=== PATIENT | male | born 1960 | race Caucasian/White ===

== ENCOUNTER 2017-06-24 10:32 | Inpatient (IN) | payer OTHER ==
[~2017-06-24] VITALS: Ht 180.3 cm; Wt 142.2 kg
[~2017-06-24 10:32] MED LIST: AMLO-114 PO; APR25 PO; ASPI81TA28 PO; CARV25TA PO; CLON0.3T PO; DOXA1TAB PO; FURO40TA3 PO; GLIM2TAB PO; KCLP20 PO; LPT10 PO
[2017-06-24 15:46] VITALS: BP 183/102; PULSE 66; TEMP 36.5; O2SAT 100; BMI 44.3
[2017-06-24] MEDS ORDERED: DEXTROSE 50% 50 ML SYR IV PRN (16:00)
[2017-06-24] MEDS ORDERED: GLUCAGON FOR INJ 1 MG VIAL SQ PRN (16:00)
[2017-06-24] MEDS ORDERED: GLUCOSE 10 TABS/TUBE PO PRN (16:00)
[2017-06-24] MEDS ORDERED: ACETAMINOPHEN 325 MG TAB PO PRN (16:00)
[2017-06-24] MEDS ORDERED: GLUCOSE 40% GEL 15 GM TUBE PO PRN (16:00)
[2017-06-24] MEDS ORDERED: CYAN100020 PO (16:02)
[2017-06-24] MEDS ORDERED: ISOS60TA25 PO (16:02)
[2017-06-24] MEDS ORDERED: CNT PO (16:02)
[2017-06-24] MEDS ORDERED: TRIATAB3 PO (16:02)
[2017-06-24] MEDS ORDERED: CHOL20007 PO (16:02)
[2017-06-24] MEDS ORDERED: GLIM1TAB2 PO (16:02)
[2017-06-24] MEDS ORDERED: CLONIDINE HCL 0.1 MG TAB PO ONE (16:15)
[2017-06-24] MEDS ORDERED: [UNRECOGNIZED DRUG - REMARK] PO (16:24)
[2017-06-24] MEDS ORDERED: [UNRECOGNIZED DRUG - OTHER] PEG (16:24)
[2017-06-24] MEDS ORDERED: INFLUENZA VIRUS QUAD VACCINE 0.5 ML SYR IM. ONE (16:30)
[2017-06-24] MEDS ORDERED: INFLUENZA ADMINISTRATION CHARGE ONE (16:30)
--- NOTE | 2017-06-24 16:43 | History and Physical ---
History & Physical Date & Time of Service: Jun 24, 2017 at 16:30 Chief Complaint: Uremia Primary Care Physician: Serjio Glass D.O. History of Present Illness Source: patient, clinic records, hospital records This is a 57 year old male with a PMH of CKD stage V not on dialysis, labile hypertension, DM2, hyperlipidemia - sent from nephrology office to get a tunneled catheter for dialysis. Patient states he does not have many symptoms; denies chest pain, shortness of breath, denies nausea/vomiting/diarrhea. Still producing urine. Denies any urinary symptoms. No other issues to note today. Past Medical/Surgical History Medical Problems: (1) Chronic diastolic CHF (congestive heart failure) Status: Chronic (2) CKD (chronic kidney disease), stage IV Status: Chronic (3) Diabetes mellitus, type II Status: Chronic (4) HLD (hyperlipidemia) Status: Chronic (5) Hypertension Status: Chronic (6) Sleep apnea Permanent Comment: CPAP Status: Chronic Surgical Problems: (1) Status post carpal tunnel release Status: Chronic Family History Amyloidosis FATHER Diabetes mellitus MOTHER FHx: heart disease Hypertension MOTHER Stroke MOTHER Social History Smoking Status: Former Smoker Drug Use: none Marital Status: Housing status: lives alone Occupational Status: employed Allergies Coded Allergies: No Known Allergies (Unverified , 10/12/14) Home Medications Scheduled Amlodipine (Norvasc), 10 MG PO DAILY Aspirin (Aspirin Ec), 81 MG PO DAILY Atorvastatin (Lipitor), 10 MG PO QAM Carvedilol (Coreg), 25 MG PO BID Cholecalciferol (Vitamin D3), 1 TAB PO DAILY Clonidine Hcl (Catapres), 0.3 MG PO DAILY Cyanocobalamin (Vitamin B12), 1,000 MCG PO DAILY Doxazosin Mesylate (Cardura), 1 MG PO DAILY Glimepiride (Glimepiride), 1 TAB PO BID Hydralazine Hcl (Apresoline), 25 MG PO TID Isosorbide Mononitrate Ext Rel (Imdur Ext Rel), 60 MG PO QAM Multivitamins/Minerals (Certavite/Antioxidants), 1 TAB PO DAILY Potassium Chloride (Klor-Con), 20 MG PO BID Triamterene/Hctz (Triamterene/Hctz 37.5-25MG), 1 TAB PO HS [kidney stuff], 1 CAP PO DAILY [peony immune], 1 CAP PEG DAILY Review of Systems Constitutional: + weakness, + fatigue, No fever, No chills, No sweats Respiratory: No cough, No sputum, No wheezing, No shortness of breath, No dyspnea on exertion, No dyspnea at rest, No hemoptysis Cardiovascular: + edema, No chest pain, No orthopnea, No palpitations Abdomen: No pain, No nausea, No vomiting, No diarrhea, No constipation, No GI bleeding Musculoskeletal: + joint pain (chronic back pain), + swelling (b/l LE swelling) , No muscle pain Genitourinary - Male: No hematuria, No dysuria, No urinary frequency, No urinary urgency, No urinary hesitancy, No urinary retention Neurologic: + weakness, No numbness/tingling, No vertigo, No balance problems Psychiatric: No depression symptoms, No anxiety, No insomnia Endocrine: + fatigue, No excessive thirst, No excessive urination Hematologic / Lymphatic: No abnormal bleeding/bruising Integumentary: No rash Allergic / Immunologic: No environmental allergies, No seasonal allergies Physical Exam Vital Signs Date Time Temp Pulse Resp B/P (MAP) Pulse Ox O2 Delivery O2 Flow Rate FiO2 06/24/17 15:46 36.5 66 19 183/102 General Appearance: WD/WN, no apparent distress, + obese Head: normocephalic, atraumatic Eyes: normal inspection ENT: hearing grossly normal Respiratory/Chest: chest non-tender, lungs clear, normal breath sounds, no respiratory distress, no accessory muscle use Cardiovascular: regular rate, rhythm, no murmur, normal peripheral pulses Abdomen/GI: normal bowel sounds, non tender, soft, + distended Back: normal inspection, no CVA tenderness, no muscle spasm, normal range of motion Extremities/Musculoskelatal: normal inspection, no calf tenderness, normal capillary refill, normal range of motion, + pertinent finding (+trace pitting edema b/l LE) Neurologic/Psych: neon glass bender II-XII nml as tested, no motor/sensory deficits, alert, normal mood/affect, oriented x 3 Skin: normal color Lymphatic: no adenopathy Diagnostics Laboratory Results Results Past 24 Hours Test 06/24/17 15:48 06/24/17 16:03 06/24/17 16:19 Range/Units Bedside Glucose 73 70-99 mg/dl Impression Assessment and Plan This is a 57 year old male with a PMH of CKD stage V not on dialysis, labile hypertension, DM2, hyperlipidemia - sent from nephrology office to get a tunneled catheter for dialysis. ESRD plan for tunneled catheter line placed by vascular surgery in AM will check labs, which are pending, including electrolytes monitor in tele nephrology consulted for further input for now, will continue vitamin B12, vitamin D, multivitamins/minerals Labile Hypertension Hypertensive Urgency blood pressure is difficult to control patient is currently on Triamterene/HCTZ 37.5/25mg, Clonidine 0.3mg daily, Hydralazine 25mg TID, Coreg 25mg daily, Norvasc 10mg daily, Cardura 1mg daily, Imdur 60mg daily during office visit with nephrology earlier today (06/24) - blood pressure was slightly low, so Hydralazine dose was changed from 50mg TID to 25mg TID blood pressure on admission here was >180/100 will give extra dose of Hydralazine 25mg and clonidine 0.1mg x1 now states he takes most of his blood pressure medications at home, so we will monitor his blood pressure closely DM2 Ha1c in May 2017 - 6.5% hold Glimepiride insulin sliding scale Hyperlipidemia continue Lipitor DVT ppx SCDs FULL CODE Advanced Directives Existing Living Will: No Existing Power of Pig Farm Manager: No VTE Prophylaxis VTE Risk Assessment Done? Y/N: Yes Risk Level: Moderate
[2017-06-24] MEDS: INSULIN ASPART 100 UNITS/ML 3 ML PEN SC SCH ×2 (17:31→21:00)
[2017-06-24 17:33] LABS: HEMATOCRIT 37.9 % (42-52); HEMOGLOBIN 12.8 g/dL (14.0-18.0); MEAN CELL VOLUME 83.5 fL (80-100); MEAN CORPUSCULAR HEMOGLOBIN 28.2 pg (25-34); MEAN CORPUSCULAR HGB CONC 33.8 g/dl (32-36); MEAN PLATELET VOLUME 9.8 fL (7.4-10.4); PLATELET COUNT 274 K/uL (130-400); RED CELL DISTRIBUTION WIDTH CV 14.6 % (11.5-14.5); RED CELL DISTRIBUTION WIDTH SD 44.4 fL (36.4-46.3)
[2017-06-24 17:41] LABS: PTT PATIENT 27.3 SECONDS (21.0-31.0)
[2017-06-24 18:18] LABS: ALBUMIN 3.1 gm/dl (3.4-5.0); CALCIUM 8.9 mg/dl (8.5-10.1); CREATININE 5.05 mg/dl (0.60-1.40); PHOSPHORUS 4.5 mg/dl (2.5-4.9); POTASSIUM 2.8 mmol/L (3.5-5.1); TOTAL PROTEIN 7.5 gm/dl (6.4-8.2)
[2017-06-24 18:21] VITALS: BP 153/79; PULSE 64
[2017-06-24 20:14] VITALS: BP 170/88; PULSE 63; TEMP 36.7; O2SAT 97
[2017-06-24] MEDS ORDERED: TRIAMTERENE/HCTZ 37.5/25MG TAB PO SCH (21:00)
[2017-06-24] MEDS: POTASSIUM CHLORIDE PWD 20 MEQ PACK PO SCH (21:11)
[2017-06-24] MEDS: CLONIDINE HCL 0.3 MG TAB PO SCH (21:12)
[2017-06-24] MEDS: CARVEDILOL 25 MG TAB PO SCH (21:12)
[2017-06-24] MEDS ORDERED: POTASSIUM CHLORIDE 20 MEQ TABCR PO STA (21:56)
[2017-06-24 23:53] VITALS: BP 122/73; PULSE 59; TEMP 36.7; O2SAT 99
[2017-06-25] VITALS (14 sets, daily range): BP systolic 128–155; BP diastolic 69–89; PULSE 51–68; TEMP 36.3–36.9; O2SAT 95–97; Ht 180.3 cm; Wt 142.2 kg
[2017-06-25 06:29] LABS: HEMATOCRIT 38.3 % (42-52); HEMOGLOBIN 12.8 g/dL (14.0-18.0); MEAN CORPUSCULAR HEMOGLOBIN 28.1 pg (25-34); MEAN CORPUSCULAR HGB CONC 33.4 g/dl (32-36); MEAN PLATELET VOLUME 9.7 fL (7.4-10.4); PLATELET COUNT 246 K/uL (130-400); RED CELL DISTRIBUTION WIDTH CV 14.4 % (11.5-14.5); RED CELL DISTRIBUTION WIDTH SD 43.8 fL (36.4-46.3); WHITE BLOOD COUNT 9.04 K/uL (4.8-10.8)
[2017-06-25] MEDS: INSULIN ASPART 100 UNITS/ML 3 ML PEN SC SCH ×4 (07:00→20:23)
[2017-06-25 07:23] LABS: CALCIUM 8.9 mg/dl (8.5-10.1); CREATININE 4.98 mg/dl (0.60-1.40); PHOSPHORUS 4.6 mg/dl (2.5-4.9)
--- NOTE | 2017-06-25 08:27 | Progress Note ---
Progress Note Date of Service Jun 25, 2017. Progress Note Patient was seen, examined, and chart reviewed. Agree with exam and treatment plan of the Vascular PA. Patient for permcath today. I have discussed the risks options and benefits of the procedure with the patient. The patient understands the risks options and benefits and agrees to the procedure.
--- NOTE | 2017-06-25 08:28 | Pre Sedation Assessment ---
Pre Sedation Assessment General Date of Sedation: Jun 25, 2017. Vital Signs Past 12 Hours Date Time Temp Pulse Resp B/P (MAP) Pulse Ox O2 Delivery O2 Flow Rate FiO2 06/25/17 07:40 36.5 56 22 142/69 (93) 95 06/25/17 04:01 36.3 52 20 147/80 (102) 96 Room Air 06/25/17 04:00 Room Air 06/25/17 00:00 Room Air 06/24/17 23:53 36.7 59 18 122/73 (89) 99 BiPAP Review Cardiovascular: regular rate, rhythm Lungs: lungs clear Pre-Sedation Airway Assessment Smoking Status: Former Smoker Hx of Sleep Apnea: No Hx of difficult intubation: No Short Thick Neck: No Thyro-mental Distance: > 3 Finger Breadths Oral Cavity: WNL Mallampati Classification: Class I ASA Classification: Class IV NPO Status Date of Last Intake of Fluids: Jun 25, 2017 Time of Last Intake of Fluids: 00:00 Date of Last Intake of Solids: Jun 25, 2017 Time of Last Intake of Solids: 00:00 Procedure Planning Contraindications for Sedation: None Current Medications Reviewed: Yes Notes The planned sedation has been discussed with the patient. Informed Consent was obtained. I have identified the patient, determined the appropriateness of sedation and have assessed the patient immediately prior to the procedure. All medicine(s) and interventions are by my order.
[2017-06-25] MEDS: DOXAZosin TAB 1 MG TAB PO SCH (08:37)
[2017-06-25] MEDS: ATORVASTATIN 10 MG TAB PO SCH (08:38)
[2017-06-25] MEDS: AMLODIPINE BESYLATE 5 MG TAB PO SCH (08:38)
[2017-06-25] MEDS: ISOSORBIDE MONONITRATE 60 MG TABCR PO SCH (08:38)
--- NOTE | 2017-06-25 08:38 | Surgery Consultation ---
Consultation Date of Service Jun 25, 2017. Chief Complaint ESRD, need permcath for hd History of Present Illness The patient is a 57 year old male with hx of htn, dmII, CKD, admitted d/t worsening renal disease, seen today for permcath insertion so pt can begin HD. Pt admits fatigue, malaise. Denies [place], fever, chills, chest pain, SOB, abd pain , N/V, rest pain, claudication, other complaints. Vitals Vital Signs Past 12 Hours Date Time Temp Pulse Resp B/P (MAP) Pulse Ox O2 Delivery O2 Flow Rate FiO2 06/25/17 07:40 36.5 56 22 142/69 (93) 95 06/25/17 04:01 36.3 52 20 147/80 (102) 96 Room Air 06/25/17 04:00 Room Air 06/25/17 00:00 Room Air 06/24/17 23:53 36.7 59 18 122/73 (89) 99 BiPAP Allergies Coded Allergies: No Known Allergies (Unverified , 10/12/14) Home Medications Scheduled Amlodipine (Norvasc), 10 MG PO DAILY Aspirin (Aspirin Ec), 81 MG PO DAILY Atorvastatin (Lipitor), 10 MG PO QAM Carvedilol (Coreg), 25 MG PO BID Cholecalciferol (Vitamin D3), 1 TAB PO DAILY Clonidine Hcl (Catapres), 0.3 MG PO DAILY Cyanocobalamin (Vitamin B12), 1,000 MCG PO DAILY Doxazosin Mesylate (Cardura), 1 MG PO DAILY Glimepiride (Glimepiride), 1 TAB PO BID Hydralazine Hcl (Apresoline), 25 MG PO TID Isosorbide Mononitrate Ext Rel (Imdur Ext Rel), 60 MG PO QAM Multivitamins/Minerals (Certavite/Antioxidants), 1 TAB PO DAILY Potassium Chloride (Klor-Con), 20 MG PO BID Triamterene/Hctz (Triamterene/Hctz 37.5-25MG), 1 TAB PO HS [kidney stuff], 1 CAP PO DAILY [peony immune], 1 CAP PEG DAILY Problem List Medical Problems: (1) Chest pain (2) Chronic diastolic CHF (congestive heart failure) (3) CKD (chronic kidney disease), stage IV (4) Diabetes mellitus, type II (5) DM2 (diabetes mellitus, type 2) (6) ESRD (end stage renal disease) (7) HLD (hyperlipidemia) (8) Hypertension (9) Sleep apnea Surgical Problems: (1) Status post carpal tunnel release Surgical / Medical History Hx Cardiac Surgery: No Hx Abdominal Surgery: No Hx Cancer Surgery: No Hx Thoracic Surgery: No Hx Orthopedic: Yes (Carpal tunnel release right ) Hx Urinary Tract Surgery: No Past Medical/Surgical History: Diabetes, High Cholesterol, Hypertension, Kidney Disease Family History Amyloidosis FATHER Diabetes mellitus MOTHER FHx: heart disease Hypertension MOTHER Stroke MOTHER Social History Smoking Status: Former Smoker Hx Tobacco Use In Past Year?: Yes (QUIT SMOKING ) Hx Alcohol Use - Type & Amnt: Yes Hx Substance Use -Type & Amnt: No Review of Systems Constitutional: + malaise, No chills, No fever Skin: No change in color Eyes: No visual changes ENMT: No sore throat Respiratory: No cough, No YOUSIF, No hemoptysis, No short of breath Cardiovascular: No chest pain, No palpitations, No syncope Gastrointestinal: No abdominal pain, No nausea, No vomiting Neurologic: No dizziness, No headache, No numbness, No tingling Physical Exam Constitutional: General Apperance: well-nourished, well-developed, obese Level of Distress: NAD, chronically ill (mildly) Ambulation: ambulating normally Psychiatric: Mental Status: active & alert, normal mood, normal affect Orientation: oriented except where noted, to time, to place, to person Memory: recent memory normal, remote memory normal Head: normocephalic, atraumatic Eyes: EOM: EOMI ENMT: normal ENT inspection Neck: supple, trachea midline Lungs: Respiratory effort: no dyspnea Auscultation: no wheezing, no rhonchi, decreased breath sounds Cardiovascular: Apical Impulse: not displaced Heart Auscultation: RRR, no rubs, no gallops Peripheral Pulses: Pulses: full and equal, in all extremities except if noted Bruits: none appreciated Carotid Pulse: normal on the left, normal on the right Brachial Pulses: normal on the left, normal on the right Radial Pulse: normal on the left, normal on the right Femoral Pulse: normal on the left, normal on the right Posterior Tibialis Pulse: decreased on the left, decreased on the right Dorsalis Pedis Pulse: decreased on the left, decreased on the right Abdomen: Bowel Sounds: normal Inspection & Palpation: soft, non-distended, no tenderness, guarding & rebound Musculoskeletal: normal strength (5/5 throughout), normal tone Extremities: Upper Right: no cyanosis, no varicosities, no palpable cord, edema Upper Left: no cyanosis, no varicosities, edema Lower Right: no cyanosis, no varicosities, edema Lower Left: no cyanosis, no varicosities, edema Neurologic: Cranial Nerves: grossly intact Sensation: grossly intact Assessment and Plan ASSESSMENT and PLAN: ESRD Pt for permcath insertion this AM. Procedure, risks, benefits and alternatives discussed with pt by Dr Antoine, he expresses understanding and agreement.
[2017-06-25] MEDS: ASPIRIN 81 MG ECTAB PO SCH (08:39)
[2017-06-25] MEDS: POTASSIUM CHLORIDE PWD 20 MEQ PACK PO SCH ×2 (08:39→20:22)
[2017-06-25] MEDS: CEROVITE ADV FORMULA TAB PO SCH (08:39)
[2017-06-25] MEDS: CHOLECALCIFEROL 1000 INTER.UNIT TAB PO SCH (08:39)
[2017-06-25] MEDS: CYANOCOBALAMIN 500 MCG TAB (VIT B-12) PO SCH (08:39)
[2017-06-25] MEDS ORDERED: HEPARIN SOD (PORCINE) 5000 UNIT/ML 1 ML VIAL ONE (08:42)
[2017-06-25] MEDS ORDERED: FENTANYL CITRATE INJ 50 MCG/1 ML 2 ML VIAL ONE (08:42)
[2017-06-25] MEDS ORDERED: MIDAZOLAM HCL 1 MG/ML 2ML VIAL ONE (08:42)
[2017-06-25] MEDS ORDERED: CEFAZOLIN IV 1,000 MG in DEXTROSE 5% 50ML 50 ML IV SCH (09:00)
[2017-06-25] MEDS ORDERED: CARVEDILOL 25 MG TAB PO SCH (09:00)
[2017-06-25] MEDS ORDERED: CLONIDINE HCL 0.3 MG TAB PO SCH (09:00)
[2017-06-25] MEDS ORDERED: CEFAZOLIN SOD 3000MG/22.5 ML IV PUSH IV ONE (09:03)
[2017-06-25] MEDS ORDERED: MIDAZOLAM HCL 1 MG/ML 2ML VIAL IV ONE (09:29)
[2017-06-25] MEDS ORDERED: FENTANYL CITRATE INJ 50 MCG/1 ML 2 ML VIAL IV ONE (09:29)
[2017-06-25] MEDS ORDERED: LIDOCAINE HCL 1% 20 ML VIAL INJ ONE (09:31)
--- NOTE | 2017-06-25 09:47 | [facility] Operative Report ---
Operative Report Operative Date Jun 25, 2017. Pre-Operative Diagnosis End Stage Renal Disease Post-Operative Diagnosis End Stage Renal Disease Procedure(s) Performed Perm Cath Insertion, Right Jugular Approach Ultrasound Localization of Right Jugular Vein Fluoroscopy for Positioning Moderate Sedation [id number] Surgeon Arash Senior Living Advisor Surgeon(s) None Estimated Blood Loss 5cc Findings tip in distal SVC Specimens None Drains None Anesthesia Type IV Sedat Cons RN Only Complication(s) none Disposition Indications This patient is a 57-year-old white male with end-stage renal disease in need of dialysis. Insertion of a PermCath was recommended for dialysis purposes. I have discussed the risks options and benefits of the procedure with the patient. The patient understands the risks options and benefits and agrees to the procedure. Description of Procedure Patient was takent to the angio suite and placed in the supine position. The right side of the neck and chest wall were prepped and draped in a sterile manner. Local anesthesia was then administered to the appropriate areas of the neck and chest wall. Ultrasound was then used to locate the right internal jugular vein. The vein compressed easily, had no filing defects, and was patent. The vein was then punctured under direct ultrasound imaging. A guidewire was then passed centrally under fluoroscopic imaging. A stab wound was then made in the anterior chest wall and a 19 cm permcath was passed from the stab wound on the chest wall to the puncture site on the neck. The puncture site was then dilated till the 14Fr peel away sheath was inserted. The permcath was then inserted through the sheath to a central position in the distal superior vena cava. The peel away sheath was then removed. The catheter was then sutured in place using nylon sutures. The puncture was then closed using a 4-0 Vicryl subcuticular suture. Dermabond was used for a dressing on the puncture site. Both ports aspirated and flushed easily and were then packed with heparin. A sterile dressing was applied to the catheter. The patient left the angio suite in good condition and tolerated the procedure well. I attest to the content of the Intraoperative Record and any orders documented therein. Any exceptions are noted below.
[2017-06-25] MEDS ORDERED: HEPARIN SOD (PORCINE) 5000 UNIT/ML 1 ML VIAL IV ONE (09:48)
--- NOTE | 2017-06-25 09:55 | Post Sedation Assessment ---
Post Sedation Assessment General Date of Sedation Jun 25, 2017. Vital Signs: Vital Signs Past 12 Hours Date Time Temp Pulse Resp B/P (MAP) Pulse Ox O2 Delivery O2 Flow Rate FiO2 06/25/17 09:43 57 12 153/73 100 Oxymask 4 06/25/17 09:40 Oxymask 4 06/25/17 09:35 Oxymask 4 06/25/17 09:30 Oxymask 4 06/25/17 09:29 54 12 155/75 98 Oxymask 4 06/25/17 07:40 36.5 56 22 142/69 (93) 95 06/25/17 04:01 36.3 52 20 147/80 (102) 96 Room Air 06/25/17 04:00 Room Air 06/25/17 00:00 Room Air 06/24/17 23:53 36.7 59 18 122/73 (89) 99 BiPAP Post Procedure Recovery Score Activity: (2) Moves 4 extremities * Respiration: (2) Deep breath/cough Circulation: (2) +/-20% PreAnes Value Consciousness: (2) Fully Awake Oxygen Saturation: (2) > 92% On Room Air Post Anesthesia Score: 10 Discharge Sedation Level of Care: Fast Track Phase II Post Sedation Plan On clinical assessment, the patient appears to have tolerated the sedation without complications. Patient is recovering as anticipated. Patient will continue to be monitored by nursing and may be discharged when sedation discharge criteria are met per below protocol. Upon Completions of procedure and additional 15 minutes continue every 5 minute vital signs and the P.A.R. score; then discharge to a Phase I or Fast Track to Phase II per the following guidelines: * Discharge Patient to appropriate Phase II area if PAR is 8 or greater or return to pre- procedure baseline. The post - procedure orders will be as directed. * If PAR score is less than 8 or not return to pre-procedure baseline then patient will follow Phase I monitoring till PAR is reached for Phase II. The Phase I may be done in procedure room or may call to secure a Phase I area. * If naloxone or flumazenil are used for reversal, hold in Phase I for an additional 60 -120 minutes before discharge to Phase II. Please call the Sedation Physician to re-evaluate and complete post-note for discharge to Phase II area. Do NOT discharge from procedure sedation or Phase 1 until post- sedation evaluation note is complete by procedure /sedation MD Sedation Discharge Instructions to be given to the patient at discharge to home.
[2017-06-25] MEDS ORDERED: ARISTA ABSORBABLE HEMOSTAT 3GM TOP ONE (09:56)
[2017-06-25] MEDS ORDERED: POTASSIUM CHLORIDE 20 MEQ TABCR PO ONE (10:30)
--- NOTE | 2017-06-25 10:50 | Progress Note ---
Internal Med Progress Note Date of Service: Jun 25, 2017. Provider Documentation: SUBJECTIVE: Seen and examined at bedside Had Tunneled Catheter placed today Planned for dialysis today Denies any chest pain, SOB, dizziness No other complaints OBJECTIVE: Vital Signs-as noted below Physical Exam: General Appearance:Moderately built and nourished, no apparent distress Head: normocephalic, Atraumatic Eyes: normal inspection, EOMI, PERRL Neck: supple, Trachea midline Respiratory/Chest: Normal breath sounds, CTA Cardiovascular: S1, S2, No murmur Abdomen/GI:Soft, Non tender, Bowel sounds present Extremities/Musculoskelatal:normal inspection, Trace edema Neurologic/Psych:AAOX3, grossly no focal neurological deficits Skin: normal color, warm Lab data as noted below. ASSESSMENT & PLAN: Patient is a 57 yr old male with a PMH of CKD stage V not on dialysis, labile HTN, DM II, hyperlipidemia - sent from nephrology office to get a tunneled catheter for dialysis. ESRD Had tunneled catheter placed 06/25/17 Dialysis per Nephrology Appreciate Vascular Surgery and Nephrology Needs outpatient dialysis set up prior to discharge Hypokalemia: Replace and monitor Labile Hypertension Hypertensive Urgency currently on Triamterene/HCTZ 37.5/25mg, Clonidine 0.3mg daily, Hydralazine 25mg TID, Coreg 25mg daily, Norvasc 10mg daily, Cardura 1mg daily, Imdur 60mg daily Hydralazine dose was changed from 50mg TID to 25mg TID prior to admission by his Crime Scene Examiner Continue current medications monitor DM II A1C: May 2017: 6.5% hold Glimepiride Continue ISS Monitor BG Hyperlipidemia continue Lipitor DVT px SCDs Code Status: Full Code Disposition: Plan to discharge home when outpatient dialysis is set up Vital Signs: Date Time Temp Pulse Resp B/P (MAP) Pulse Ox O2 Delivery O2 Flow Rate FiO2 06/25/17 10:01 59 12 153/72 96 Room Air 06/25/17 09:56 60 12 148/92 95 Room Air 06/25/17 09:51 Oxymask 4 06/25/17 09:46 Oxymask 4 06/25/17 09:45 Oxymask 4 06/25/17 09:43 57 12 153/73 100 Oxymask 4 06/25/17 09:40 Oxymask 4 06/25/17 09:35 Oxymask 4 06/25/17 09:30 Oxymask 4 06/25/17 09:29 54 12 155/75 98 Oxymask 4 06/25/17 07:40 36.5 56 22 142/69 (93) 95 06/25/17 04:01 36.3 52 20 147/80 (102) 96 Room Air 06/25/17 04:00 Room Air 06/25/17 00:00 Room Air 06/24/17 23:53 36.7 59 18 122/73 (89) 99 BiPAP 06/24/17 20:14 36.7 63 18 170/88 (115) 97 06/24/17 20:00 Room Air 06/24/17 18:21 64 153/79 (103) 06/24/17 15:46 36.5 66 19 183/102 100 Room Air Lab Results: Results Past 24 Hours Test 06/24/17 16:19 06/24/17 16:58 06/24/17 18:09 06/24/17 20:16 Range/Units Bedside Glucose 73 136 70-99 mg/dl White Blood Count 11.40 4.8-10.8 K/uL Red Blood Count 4.54 4.7-6.1 M/uL Hemoglobin 12.8 14.0-18.0 g/dL Hematocrit 37.9 42-52 % Mean Corpuscular Volume 83.5 80-100 fL Mean Corpuscular Hemoglobin 28.2 25-34 pg Mean Corpuscular Hemoglobin Concent 33.8 32-36 g/dl RDW Standard Deviation 44.4 36.4-46.3 fL RDW Coefficient of Variation 14.6 11.5-14.5 % Platelet Count 274 130-400 K/uL Mean Platelet Volume 9.8 7.4-10.4 fL Prothrombin Time 10.0 9.0-12.0 SECONDS Prothromb Time International Ratio 1.0 0.9-1.1 Activated Partial Thromboplast Time 27.3 21.0-31.0 SECONDS Partial Thromboplastin Ratio 1.1 Sodium Level 139 136-145 mmol/L Potassium Level 2.8 3.5-5.1 mmol/L Chloride Level 102 98-107 mmol/L Carbon Dioxide Level 28 21-32 mmol/L Anion Gap 9.0 3-11 mmol/L Blood Urea Nitrogen 64 7-18 mg/dl Creatinine 5.05 0.60-1.40 mg/dl Est Creatinine Clear Calc Drug Dose 23.5 ml/min Estimated GFR () 13.6 Estimated GFR (Non- 11.7 BUN/Creatinine Ratio 12.7 10-20 Random Glucose 68 70-99 mg/dl Calcium Level 8.9 8.5-10.1 mg/dl Phosphorus Level 4.5 2.5-4.9 mg/dl Magnesium Level 2.6 1.8-2.4 mg/dl Total Bilirubin 0.4 0.2-1 mg/dl Aspartate Amino Transf (AST/SGOT) 9 15-37 U/L Alanine Aminotransferase (ALT/SGPT) 20 12-78 U/L Alkaline Phosphatase 55 45-117 U/L Total Protein 7.5 6.4-8.2 gm/dl Albumin 3.1 3.4-5.0 gm/dl Globulin 4.4 2.5-4.0 gm/dl Albumin/Globulin Ratio 0.7 0.9-2 Hepatitis C Antibody Screen NEG NEG Test 06/25/17 05:48 06/25/17 06:44 Range/Units White Blood Count 9.04 4.8-10.8 K/uL Red Blood Count 4.56 4.7-6.1 M/uL Hemoglobin 12.8 14.0-18.0 g/dL Hematocrit 38.3 42-52 % Mean Corpuscular Volume 84.0 80-100 fL Mean Corpuscular Hemoglobin 28.1 25-34 pg Mean Corpuscular Hemoglobin Concent 33.4 32-36 g/dl RDW Standard Deviation 43.8 36.4-46.3 fL RDW Coefficient of Variation 14.4 11.5-14.5 % Platelet Count 246 130-400 K/uL Mean Platelet Volume 9.7 7.4-10.4 fL Sodium Level 138 136-145 mmol/L Potassium Level 3.0 3.5-5.1 mmol/L Chloride Level 101 98-107 mmol/L Carbon Dioxide Level 28 21-32 mmol/L Anion Gap 9.0 3-11 mmol/L Blood Urea Nitrogen 58 7-18 mg/dl Creatinine 4.98 0.60-1.40 mg/dl Est Creatinine Clear Calc Drug Dose 23.7 ml/min Estimated GFR () 13.8 Estimated GFR (Non- 11.9 BUN/Creatinine Ratio 11.5 10-20 Random Glucose 159 70-99 mg/dl Calcium Level 8.9 8.5-10.1 mg/dl Phosphorus Level 4.6 2.5-4.9 mg/dl Magnesium Level 2.6 1.8-2.4 mg/dl Bedside Glucose 164 70-99 mg/dl
--- NOTE | 2017-06-25 13:34 | Nephrology Consultation ---
Nephrology Consultation Date of Consultation: Jun 25, 2017. Attending Physician: Dr Barlow Requesting Physician: Dr Stearns Reason for Consultation: ESRD History of Present Illness 57 year old male followed by Dr Quinn latif/ advanced renal failure; recently became uremic and admitted for tunnelled dialysis catheter placement, initiation of dialysis. Plan is after discharge to dialyze at [facility]. When seen on rounds this am at about 10, he already had TDC. Feeling reasonably well; ready to start. Asking for more food/ bigger helpings. He still voids daily. he has no AV fistula currently. Past Medical/Surgical History Medical Problems: (1) Unstable angina Status: Acute -DM -ESRD -CARL on cpap -HTN Family History Amyloidosis FATHER Diabetes mellitus MOTHER FHx: heart disease Hypertension MOTHER Stroke MOTHER Social History Smoking Status: Former Smoker Drug Use: none Marital Status: Housing Status: lives with family Occupation Status: employed Allergies Coded Allergies: No Known Allergies (Unverified , 10/12/14) Medications Current Inpatient Medications Medications (Trade) Dose Ordered Sig/Juan Jose Route Start Time Stop Time Status Last Admin Dose Admin Acetaminophen (Tylenol Tab) 650 mg Q4H PRN PO 06/24/17 16:00 07/24/17 15:59 Insulin Aspart (novoLOG ASPART) SLIDING SCALE If C... ACHS SC 06/24/17 16:15 07/24/17 16:14 06/24/17 17:31 2 UNITS Glucose (Glucose 40% Gel) 15-30 GRAMS 15 GRAMS... UD PRN PO 06/24/17 16:00 07/24/17 15:59 Glucose (Glucose Chew Tab) 4-8 Tablets 4 Tabl... UD PRN PO 06/24/17 16:00 07/24/17 15:59 Dextrose (Dextrose 50% 50ML Syringe) 25-50ML OF 50% DW IV FOR... UD PRN IV 06/24/17 16:00 07/24/17 15:59 Glucagon (Glucagon Inj) 1 mg UD PRN SQ 06/24/17 16:00 07/24/17 15:59 Amlodipine Besylate (Norvasc Tab) 10 mg DAILY PO 06/25/17 09:00 07/25/17 08:59 Aspirin (Ecotrin Tab) 81 mg DAILY PO 06/25/17 09:00 07/25/17 08:59 Atorvastatin Calcium (Lipitor Tab) 10 mg QAM PO 06/25/17 09:00 07/25/17 08:59 Doxazosin Mesylate (Cardura Tab) 1 mg DAILY PO 06/25/17 09:00 07/25/17 08:59 Hydralazine HCl (Apresoline Tab) 25 mg TID PO 06/24/17 21:00 07/24/17 20:59 06/24/17 21:13 25 MG Isosorbide Mononitrate (Imdur Ext Rel Tab) 60 mg QAM PO 06/25/17 09:00 07/25/17 08:59 Multivitamins/ Minerals (Multivitamin W/ Minerals Tab) 1 tab DAILY PO 06/25/17 09:00 07/25/17 08:59 Potassium Chloride (Klor-Con Pwd) 20 meq BID PO 06/24/17 21:00 07/24/17 20:59 06/24/17 21:11 20 MEQ Triamterene/HCTZ (Maxzide 37.5/25 Tab) 1 tab HS PO 06/24/17 21:00 07/24/17 20:59 06/24/17 21:13 1 TAB Cholecalciferol (Vitamin D Tab) 2,000 inter.unit DAILY PO 06/25/17 09:00 07/25/17 08:59 Cyanocobalamin (Vitamin B-12 Tab) 1,000 mcg DAILY PO 06/25/17 09:00 07/25/17 08:59 Carvedilol (Coreg Tab) 25 mg HS PO 06/24/17 21:00 07/25/17 08:59 06/24/17 21:12 25 MG Clonidine HCl (Catapres Tab) 0.3 mg HS PO 06/24/17 21:00 07/25/17 08:59 06/24/17 21:12 0.3 MG Home Meds and Scripts Medications Dose Route/Sig Max Daily Dose Days Date Category [peony immune] 1 Cap PEG DAILY 06/24/17 Reported [kidney stuff] 1 Cap PO DAILY 06/24/17 Reported Vitamin B12 (Cyanocobalamin) 1,000 Mcg Tab 1,000 Mcg PO DAILY 06/24/17 Reported Vitamin D3 (Cholecalciferol) 2,000 Unit Tab 1 Tab PO DAILY 30 06/24/17 Reported Certavite/Antioxidants (Multivitamins/Minerals) 1 Tab Tab 1 Tab PO DAILY 06/24/17 Reported Triamterene/Hctz 37.5-25MG (Triamterene/HCTZ) 1 Tab Tab 1 Tab PO HS 30 06/24/17 Reported Imdur Ext Rel (Isosorbide Mononitrate) 60 Mg Ertab 60 Mg PO QAM 06/24/17 Reported Glimepiride 1 Mg Tab 1 Tab PO BID 30 06/24/17 Reported Apresoline (Hydralazine Hcl) 25 Mg Tab 25 Mg PO TID 05/08/15 Rx Lipitor (Atorvastatin Calcium) 10 Mg Tab 10 Mg PO QAM 05/08/15 Rx Aspirin Ec (Aspirin) 81 Mg Tab 81 Mg PO DAILY 05/07/15 Reported Catapres (Clonidine Hcl) 0.3 Mg Tab 0.3 Mg PO DAILY 05/07/15 Reported Cardura (Doxazosin Mesylate) 1 Mg Tab 1 Mg PO DAILY 10/04/14 Reported Coreg (Carvedilol) 25 Mg Tab 25 Mg PO BID 10/04/14 Reported Norvasc (Amlodipine Besylate) 10 Mg Tab 10 Mg PO DAILY 10/04/14 Reported Klor-Con (Potassium Chloride) 20 Meq Pack 20 Mg PO BID 10/04/14 Reported Review of Systems Constitutional: + weakness, + fatigue, No fever, No chills Eyes: No worsening of vision ENT: No hearing loss Respiratory: + dyspnea on exertion, No cough, No dyspnea at rest Cardiac: + edema, No chest pain, No orthopnea, No palpitations Abdomen: No pain, No nausea, No vomiting, No diarrhea, No constipation Musculoskeletal: No joint pain, No muscle pain Male : + problem reported (no change in chronic voiding habits; voids daily) Neuro: No memory loss, No weakness Psych: No depression symptoms, No anxiety Heme: No abnormal bleeding/bruising Endo: + fatigue Skin: No rash Physical Exam Date Time Temp Pulse Resp B/P (MAP) Pulse Ox O2 Delivery O2 Flow Rate FiO2 06/25/17 07:40 36.5 56 22 142/69 (93) 95 06/25/17 04:01 36.3 52 20 147/80 (102) 96 Room Air 06/25/17 04:00 Room Air 06/25/17 00:00 Room Air 06/24/17 23:53 36.7 59 18 122/73 (89) 99 BiPAP 06/24/17 20:14 36.7 63 18 170/88 (115) 97 06/24/17 20:00 Room Air 06/24/17 18:21 64 153/79 (103) 06/24/17 15:46 36.5 66 19 183/102 100 Room Air General Appearance: WD/WN, no apparent distress, + obese (on RA) Eyes: EOMI ENT: hearing grossly normal Neck: supple Respiratory/Chest: lungs clear, + decreased breath sounds Cardiovascular: no edema, + bradycardia (regularly spaced) Abdomen: normal bowel sounds, non tender, soft, + pertinent finding (no chavez; ? fluid wave) Extremities: + pedal edema (1-2+) Neurologic/Psych: alert, normal mood/affect, oriented x 3 Skin: warm/dry, no rash Diagnostics Last 24 Hours Test 06/24/17 16:19 06/24/17 16:58 06/24/17 18:09 06/24/17 20:16 Bedside Glucose 73 mg/dl 136 mg/dl White Blood Count 11.40 K/uL Red Blood Count 4.54 M/uL Hemoglobin 12.8 g/dL Hematocrit 37.9 % Mean Corpuscular Volume 83.5 fL Mean Corpuscular Hemoglobin 28.2 pg Mean Corpuscular Hemoglobin Concent 33.8 g/dl RDW Standard Deviation 44.4 fL RDW Coefficient of Variation 14.6 % Platelet Count 274 K/uL Mean Platelet Volume 9.8 fL Prothrombin Time 10.0 SECONDS Prothromb Time International Ratio 1.0 Activated Partial Thromboplast Time 27.3 SECONDS Partial Thromboplastin Ratio 1.1 Sodium Level 139 mmol/L Potassium Level 2.8 mmol/L Chloride Level 102 mmol/L Carbon Dioxide Level 28 mmol/L Anion Gap 9.0 mmol/L Blood Urea Nitrogen 64 mg/dl Creatinine 5.05 mg/dl Est Creatinine Clear Calc Drug Dose 23.5 ml/min Estimated GFR () 13.6 Estimated GFR (Non- 11.7 BUN/Creatinine Ratio 12.7 Random Glucose 68 mg/dl Calcium Level 8.9 mg/dl Phosphorus Level 4.5 mg/dl Magnesium Level 2.6 mg/dl Total Bilirubin 0.4 mg/dl Aspartate Amino Transf (AST/SGOT) 9 U/L Alanine Aminotransferase (ALT/SGPT) 20 U/L Alkaline Phosphatase 55 U/L Total Protein 7.5 gm/dl Albumin 3.1 gm/dl Globulin 4.4 gm/dl Albumin/Globulin Ratio 0.7 Hepatitis C Antibody Screen NEG Test 06/25/17 05:48 06/25/17 06:44 White Blood Count 9.04 K/uL Red Blood Count 4.56 M/uL Hemoglobin 12.8 g/dL Hematocrit 38.3 % Mean Corpuscular Volume 84.0 fL Mean Corpuscular Hemoglobin 28.1 pg Mean Corpuscular Hemoglobin Concent 33.4 g/dl RDW Standard Deviation 43.8 fL RDW Coefficient of Variation 14.4 % Platelet Count 246 K/uL Mean Platelet Volume 9.7 fL Sodium Level 138 mmol/L Potassium Level 3.0 mmol/L Chloride Level 101 mmol/L Carbon Dioxide Level 28 mmol/L Anion Gap 9.0 mmol/L Blood Urea Nitrogen 58 mg/dl Creatinine 4.98 mg/dl Est Creatinine Clear Calc Drug Dose 23.7 ml/min Estimated GFR () 13.8 Estimated GFR (Non- 11.9 BUN/Creatinine Ratio 11.5 Random Glucose 159 mg/dl Calcium Level 8.9 mg/dl Phosphorus Level 4.6 mg/dl Magnesium Level 2.6 mg/dl Bedside Glucose 164 mg/dl Diagnostic Radiology: no XR EKG: NSR Assessment & Plan 57 y/o M w/ longstanding DM and advanced CKD now ESRD admitted for dialysis access placement, initiation of chronic dialysis. ESRD lower K; acceptable bp and volume status w/ uremic sx for urgent but not emergent HD start -vascular consulted; for TDC today -plan first HD tx today -vascular assistance appreciated w/ help for TDC -case mgt consult pls for referral to [facility] for chronic dialysis; CXR and hep panel ordered -lower K noted > will dialyze on 4 K bath -notably not anemic HTN -acceptable control -will d/c current diuretics and replace w/ lasix po Hypokalemia -4K bath today -recommend d/c on 20 mEq KCl daily or preferably follow labs tomorrow am Appreciate consult; will follow with you.
--- NOTE | 2017-06-25 14:09 | DIAGNOSTIC IMAGING REPORT ---
CHEST 2 VIEWS ROUTINE CLINICAL HISTORY: Chronic dialysis. Baseline study COMPARISON STUDY: 05/07/2015 FINDINGS: The heart is enlarged. There is a right internal jugular dual-lumen central venous catheter. There is elevation of the interstitium consistent with mild pulmonary vascular congestion/fluid overload. There is no focal pulmonary consolidation. There are no significant pleural effusions.[ IMPRESSION: Cardiomegaly and radiographic evidence of mild pulmonary vascular congestion/fluid overload. Electronically signed by: Kayden Crowley M.D. 06/25/2017 2:08 PM Dictated Date/Time: 06/25/2017 2:06 PM
[2017-06-25] MEDS: CLONIDINE HCL 0.3 MG TAB PO SCH (20:19)
[2017-06-25] MEDS: CARVEDILOL 25 MG TAB PO SCH (20:22)
[2017-06-26] VITALS (24 sets, daily range): BP systolic 117–204; BP diastolic 62–107; PULSE 49–63; TEMP 36.2–36.9; O2SAT 95–99
[2017-06-26] MEDS ORDERED: CEFAZOLIN 3000MG IV PUSH 22.5 ML IV SCH (06:00)
[2017-06-26 06:48] LABS: HEMATOCRIT 38.4 % (42-52); HEMOGLOBIN 12.5 g/dL (14.0-18.0); MEAN CELL VOLUME 84.8 fL (80-100); MEAN CORPUSCULAR HEMOGLOBIN 27.6 pg (25-34); MEAN CORPUSCULAR HGB CONC 32.6 g/dl (32-36); MEAN PLATELET VOLUME 10.2 fL (7.4-10.4); PLATELET COUNT 242 K/uL (130-400); RED CELL DISTRIBUTION WIDTH CV 14.5 % (11.5-14.5); RED CELL DISTRIBUTION WIDTH SD 44.5 fL (36.4-46.3); WHITE BLOOD COUNT 7.95 K/uL (4.8-10.8)
[2017-06-26 07:23] LABS: CALCIUM 8.5 mg/dl (8.5-10.1); CREATININE 4.19 mg/dl (0.60-1.40)
[2017-06-26] MEDS: ASPIRIN 81 MG ECTAB PO SCH (08:07)
[2017-06-26] MEDS: ATORVASTATIN 10 MG TAB PO SCH (08:07)
[2017-06-26] MEDS: CYANOCOBALAMIN 500 MCG TAB (VIT B-12) PO SCH (08:08)
[2017-06-26] MEDS: CHOLECALCIFEROL 1000 INTER.UNIT TAB PO SCH (08:08)
[2017-06-26] MEDS: POTASSIUM CHLORIDE PWD 20 MEQ PACK PO SCH ×2 (08:08→20:10)
[2017-06-26] MEDS: CEROVITE ADV FORMULA TAB PO SCH (08:08)
[2017-06-26] MEDS: INSULIN ASPART 100 UNITS/ML 3 ML PEN SC SCH ×5 (08:12→20:20)
[2017-06-26 08:53] LABS: POTASSIUM 3.2 mmol/L (3.5-5.1)
[2017-06-26] MEDS ORDERED: POTASSIUM CHLORIDE 20 MEQ TABCR PO ONE (09:45)
--- NOTE | 2017-06-26 09:51 | Dialysis Progress Note ---
Nephrology Dialysis Note Date of Service: Jun 26, 2017. Subjective 57 yo male seen on dialysis. tolerating it well. minimal uf. still with bad taste to his mouth. tolerated first treatment well. urinating well. catheter working well. Objective Date Time Temp Pulse Resp B/P (MAP) Pulse Ox O2 Delivery O2 Flow Rate FiO2 06/26/17 07:56 36.8 62 18 132/62 (85) 96 06/26/17 04:00 Room Air 06/26/17 03:33 36.9 50 16 122/78 (93) 97 06/26/17 00:03 36.5 55 16 131/79 (96) 99 06/25/17 23:59 Room Air 06/25/17 20:15 36.3 59 20 128/73 (91) 96 Room Air 06/25/17 20:00 Room Air 06/25/17 16:50 36.9 56 153/86 (108) 06/25/17 16:15 53 146/84 06/25/17 16:00 53 150/89 06/25/17 16:00 Room Air 06/25/17 15:45 51 138/83 06/25/17 15:30 51 150/78 06/25/17 15:15 53 150/83 06/25/17 15:00 57 155/83 06/25/17 14:45 58 147/81 06/25/17 14:28 52 128/75 06/25/17 14:15 36.9 52 128/75 (92) 06/25/17 12:00 Room Air 06/25/17 11:32 36.9 68 16 139/72 (94) 97 06/25/17 10:01 59 12 153/72 96 Room Air 06/25/17 09:56 60 12 148/92 95 Room Air 06/25/17 09:51 Oxymask 4 Physical Exam: General-aaox3, obese Eyes-no scleral icterus ENT-mmm Neck-supple Lungs-cta Heart-rrr Abdomen-bs+ s/nt/nd Extremities-no c/c/e Neuro-nonfocal Current Inpatient Medications Medications (Trade) Dose Ordered Sig/Juan Jose Route Start Time Stop Time Status Last Admin Dose Admin Acetaminophen (Tylenol Tab) 650 mg Q4H PRN PO 06/24/17 16:00 07/24/17 15:59 Insulin Aspart (novoLOG ASPART) SLIDING SCALE If C... ACHS SC 06/24/17 16:15 07/24/17 16:14 06/26/17 08:12 2 UNITS Glucose (Glucose 40% Gel) 15-30 GRAMS 15 GRAMS... UD PRN PO 06/24/17 16:00 07/24/17 15:59 Glucose (Glucose Chew Tab) 4-8 Tablets 4 Tabl... UD PRN PO 06/24/17 16:00 07/24/17 15:59 Dextrose (Dextrose 50% 50ML Syringe) 25-50ML OF 50% DW IV FOR... UD PRN IV 06/24/17 16:00 07/24/17 15:59 Glucagon (Glucagon Inj) 1 mg UD PRN SQ 06/24/17 16:00 07/24/17 15:59 Amlodipine Besylate (Norvasc Tab) 10 mg DAILY PO 06/25/17 09:00 07/25/17 08:59 06/25/17 08:38 10 MG Aspirin (Ecotrin Tab) 81 mg DAILY PO 06/25/17 09:00 07/25/17 08:59 06/26/17 08:07 81 MG Atorvastatin Calcium (Lipitor Tab) 10 mg QAM PO 06/25/17 09:00 07/25/17 08:59 06/26/17 08:07 10 MG Doxazosin Mesylate (Cardura Tab) 1 mg DAILY PO 06/25/17 09:00 07/25/17 08:59 06/25/17 08:37 1 MG Hydralazine HCl (Apresoline Tab) 25 mg TID PO 06/24/17 21:00 07/24/17 20:59 06/25/17 20:19 25 MG Isosorbide Mononitrate (Imdur Ext Rel Tab) 60 mg QAM PO 06/25/17 09:00 07/25/17 08:59 06/25/17 08:38 60 MG Multivitamins/ Minerals (Multivitamin W/ Minerals Tab) 1 tab DAILY PO 06/25/17 09:00 07/25/17 08:59 06/26/17 08:08 1 TAB Potassium Chloride (Klor-Con Pwd) 20 meq BID PO 06/24/17 21:00 07/24/17 20:59 06/26/17 08:08 20 MEQ Cholecalciferol (Vitamin D Tab) 2,000 inter.unit DAILY PO 06/25/17 09:00 07/25/17 08:59 06/26/17 08:08 2,000 INTER.UNIT Cyanocobalamin (Vitamin B-12 Tab) 1,000 mcg DAILY PO 06/25/17 09:00 07/25/17 08:59 06/26/17 08:08 1,000 MCG Carvedilol (Coreg Tab) 25 mg HS PO 06/24/17 21:00 07/25/17 08:59 06/24/17 21:12 25 MG Clonidine HCl (Catapres Tab) 0.3 mg HS PO 06/24/17 21:00 07/25/17 08:59 06/25/17 20:19 0.3 MG Cefazolin Sodium 22.5 ml @ 3 mls/min PREOP IV 06/26/17 06:00 06/26/17 18:00 Furosemide (Lasix Tab) 80 mg QAM PO 06/26/17 09:00 07/26/17 08:59 Heparin Sodium (Porcine) (Heparin Iv Bolus) 1,000 unit TODAY@0800 IV 06/26/17 08:00 06/26/17 18:00 Heparin Sodium (Porcine) (Heparin Iv Bolus) 400 unit TODAY@0800,0900,1000 IV 06/26/17 08:00 06/26/17 18:00 Last 24 Hours Test 06/25/17 11:08 06/25/17 12:45 06/25/17 16:13 06/25/17 20:18 Bedside Glucose 119 mg/dl 93 mg/dl 96 mg/dl Hepatitis B Surface Antigen NEG Hepatitis B Surface Antibody NEG Test 06/26/17 05:50 06/26/17 06:28 06/26/17 07:48 White Blood Count 7.95 K/uL Red Blood Count 4.53 M/uL Hemoglobin 12.5 g/dL Hematocrit 38.4 % Mean Corpuscular Volume 84.8 fL Mean Corpuscular Hemoglobin 27.6 pg Mean Corpuscular Hemoglobin Concent 32.6 g/dl RDW Standard Deviation 44.5 fL RDW Coefficient of Variation 14.5 % Platelet Count 242 K/uL Mean Platelet Volume 10.2 fL Sodium Level 138 mmol/L Potassium Level mmol/L 3.2 mmol/L Chloride Level 101 mmol/L Carbon Dioxide Level 31 mmol/L Anion Gap 6.0 mmol/L Blood Urea Nitrogen 45 mg/dl Creatinine 4.19 mg/dl Est Creatinine Clear Calc Drug Dose 28.1 ml/min Estimated GFR () 17.1 Estimated GFR (Non- 14.7 BUN/Creatinine Ratio 10.7 Random Glucose 172 mg/dl Calcium Level 8.5 mg/dl Magnesium Level mg/dl 2.7 mg/dl Bedside Glucose 170 mg/dl Assessment & Plan ESRD-new to dialysis. arranging for dialysis at [facility]. seen on dialysis today. tolerating it well. no complaints. next treatment will be wednesday. hopefully, if dialysis approves on wednesday, ok to send home wednesday after dialysis.
--- NOTE | 2017-06-26 10:17 | Progress Note ---
Internal Med Progress Note Date of Service: Jun 26, 2017. Provider Documentation: SUBJECTIVE: Seen and examined at bedside Got dialysis yesterday and today Feels well Denies any chest pain, SOB, dizziness No other complaints OBJECTIVE: Vital Signs-as noted below Physical Exam: General Appearance:Moderately built and nourished, no apparent distress Head: normocephalic, Atraumatic Eyes: normal inspection, EOMI, PERRL Neck: supple, Trachea midline Respiratory/Chest: Normal breath sounds, CTA Cardiovascular: S1, S2, No murmur Abdomen/GI:Soft, Non tender, Bowel sounds present Extremities/Musculoskelatal:normal inspection, Trace edema Neurologic/Psych:AAOX3, grossly no focal neurological deficits Skin: normal color, warm Lab data as noted below. ASSESSMENT & PLAN: Patient is a 57 yr old male with a PMH of CKD stage V not on dialysis, labile HTN, DM II, hyperlipidemia - sent from nephrology office to get a tunneled catheter for dialysis. ESRD Had tunneled catheter placed 06/25/17 Dialysis per Nephrology Appreciate Vascular Surgery and Nephrology Needs outpatient dialysis set up prior to discharge Hypokalemia: Replace and monitor Labile Hypertension Hypertensive Urgency currently on Lasix 80mg daily, Clonidine 0.3mg daily, Hydralazine 25mg TID, Coreg 25mg daily, Norvasc 10mg daily, Cardura 1mg daily, Imdur 60mg daily Triamterene/HCTZ 37.5/25mg discontinued, Started on Lasix Continue current medications monitor DM II A1C: May 2017: 6.5% hold Glimepiride Continue ISS Monitor BG Hyperlipidemia continue Lipitor DVT px SCDs Code Status: Full Code Disposition: Plan to discharge home when outpatient dialysis is set up Vital Signs: Date Time Temp Pulse Resp B/P (MAP) Pulse Ox O2 Delivery O2 Flow Rate FiO2 06/26/17 12:23 36.4 62 18 169/94 (119) 97 Room Air 06/26/17 12:18 36.6 53 163/89 (113) 06/26/17 12:00 95 Room Air 06/26/17 11:15 56 183/95 06/26/17 11:00 52 177/88 06/26/17 10:45 50 175/85 06/26/17 10:30 50 204/96 06/26/17 10:15 49 182/89 06/26/17 10:00 50 180/95 06/26/17 09:45 51 186/107 06/26/17 09:30 53 175/104 06/26/17 09:15 51 176/93 06/26/17 09:05 51 186/93 06/26/17 08:53 36.4 54 189/100 (129) 06/26/17 08:00 96 Room Air 06/26/17 07:56 36.8 62 18 132/62 (85) 96 06/26/17 04:00 Room Air 06/26/17 03:33 36.9 50 16 122/78 (93) 97 06/26/17 00:03 36.5 55 16 131/79 (96) 99 06/25/17 23:59 Room Air 06/25/17 20:15 36.3 59 20 128/73 (91) 96 Room Air 06/25/17 20:00 Room Air 06/25/17 16:50 36.9 56 153/86 (108) 06/25/17 16:15 53 146/84 06/25/17 16:00 53 150/89 06/25/17 16:00 Room Air 06/25/17 15:45 51 138/83 06/25/17 15:30 51 150/78 06/25/17 15:15 53 150/83 06/25/17 15:00 57 155/83 06/25/17 14:45 58 147/81 06/25/17 14:28 52 128/75 06/25/17 14:15 36.9 52 128/75 (92) Lab Results: Results Past 24 Hours Test 06/25/17 16:13 06/25/17 20:18 06/26/17 05:50 06/26/17 06:28 Range/Units Bedside Glucose 93 96 170 70-99 mg/dl White Blood Count 7.95 4.8-10.8 K/uL Red Blood Count 4.53 4.7-6.1 M/uL Hemoglobin 12.5 14.0-18.0 g/dL Hematocrit 38.4 42-52 % Mean Corpuscular Volume 84.8 80-100 fL Mean Corpuscular Hemoglobin 27.6 25-34 pg Mean Corpuscular Hemoglobin Concent 32.6 32-36 g/dl RDW Standard Deviation 44.5 36.4-46.3 fL RDW Coefficient of Variation 14.5 11.5-14.5 % Platelet Count 242 130-400 K/uL Mean Platelet Volume 10.2 7.4-10.4 fL Sodium Level 138 136-145 mmol/L Potassium Level 3.5-5.1 mmol/L Chloride Level 101 98-107 mmol/L Carbon Dioxide Level 31 21-32 mmol/L Anion Gap 6.0 3-11 mmol/L Blood Urea Nitrogen 45 7-18 mg/dl Creatinine 4.19 0.60-1.40 mg/dl Est Creatinine Clear Calc Drug Dose 28.1 ml/min Estimated GFR () 17.1 Estimated GFR (Non- 14.7 BUN/Creatinine Ratio 10.7 10-20 Random Glucose 172 70-99 mg/dl Calcium Level 8.5 8.5-10.1 mg/dl Magnesium Level 1.8-2.4 mg/dl Test 06/26/17 07:48 06/26/17 12:28 Range/Units Potassium Level 3.2 3.5-5.1 mmol/L Magnesium Level 2.7 1.8-2.4 mg/dl Bedside Glucose 102 70-99 mg/dl
[2017-06-26] MEDS: FUROSEMIDE 80 MG TAB PO SCH (12:21)
[2017-06-26] MEDS: DOXAZosin TAB 1 MG TAB PO SCH (12:21)
[2017-06-26] MEDS: ISOSORBIDE MONONITRATE 60 MG TABCR PO SCH (12:21)
[2017-06-26] MEDS: AMLODIPINE BESYLATE 5 MG TAB PO SCH (12:21)
[2017-06-26] MEDS: HEPARIN SOD (PORCINE) 1000 UNIT/ML 10 ML VIAL IV SCH ×4 (12:30→13:03)
--- NOTE | 2017-06-26 16:45 | DIAGNOSTIC IMAGING REPORT ---
BILATERAL UPPER EXTREMITY VENOUS MAPPING CLINICAL HISTORY: Endstage renal disease in need of access. COMPARISON STUDY: No previous studies for comparison. FINDINGS: Please note that detailed measurements are located within the PACS system. The bilateral cephalic and basilic veins are patent. The right cephalic vein ranges in size from 2 mm to 9.5 mm. The right basilic vein ranges in caliber from 1 mm to 6.7 mm. The left cephalic vein ranges in size from 2 mm to 10.8 mm. The left basilic vein ranges in size from 1.6 to 8 mm. No intraluminal thrombus is identified within the bilateral cephalic and basilic veins. IMPRESSION: 1. Patent bilateral cephalic and basilic veins. 2. Please note that detailed size and depth of the bilateral cephalic and basilic veins is located within the PACS system. Electronically signed by: Severo Styles M.D. 06/26/2017 4:43 PM Dictated Date/Time: 06/26/2017 4:40 PM
[2017-06-26] MEDS: CARVEDILOL 25 MG TAB PO SCH (20:10)
[2017-06-26] MEDS: CLONIDINE HCL 0.3 MG TAB PO SCH (20:11)
[2017-06-27 04:14] VITALS: BP 105/64; PULSE 54; TEMP 36.7; O2SAT 98
[2017-06-27 05:52] LABS: HEMATOCRIT 37.8 % (42-52); HEMOGLOBIN 12.2 g/dL (14.0-18.0); MEAN CELL VOLUME 84.6 fL (80-100); MEAN CORPUSCULAR HEMOGLOBIN 27.3 pg (25-34); MEAN CORPUSCULAR HGB CONC 32.3 g/dl (32-36); MEAN PLATELET VOLUME 10.1 fL (7.4-10.4); PLATELET COUNT 226 K/uL (130-400); RED CELL DISTRIBUTION WIDTH CV 14.4 % (11.5-14.5); WHITE BLOOD COUNT 9.21 K/uL (4.8-10.8)
[2017-06-27 06:26] LABS: CALCIUM 8.4 mg/dl (8.5-10.1); CREATININE 4.07 mg/dl (0.60-1.40)
[2017-06-27 07:59] VITALS: BP 110/74; PULSE 56; TEMP 37; O2SAT 99
[2017-06-27 08:00] VITALS: O2SAT 98
--- NOTE | 2017-06-27 08:44 | Progress Note ---
Internal Med Progress Note Date of Service: Jun 27, 2017. Provider Documentation: SUBJECTIVE: Seen and examined at bedside Doing well No complaints No plan for dialysis today Denies any chest pain, SOB, dizziness OBJECTIVE: Vital Signs-as noted below Physical Exam: General Appearance:Moderately built and nourished, no apparent distress Head: normocephalic, Atraumatic Eyes: normal inspection, EOMI, PERRL Neck: supple, Trachea midline Respiratory/Chest: Normal breath sounds, CTA Cardiovascular: S1, S2, No murmur Abdomen/GI:Soft, Non tender, Bowel sounds present Extremities/Musculoskelatal:normal inspection, Trace edema Neurologic/Psych:AAOX3, grossly no focal neurological deficits Skin: normal color, warm Lab data as noted below. ASSESSMENT & PLAN: Patient is a 57 yr old male with a PMH of CKD stage V not on dialysis, labile HTN, DM II, hyperlipidemia - sent from nephrology office to get a tunneled catheter for dialysis. ESRD Had tunneled catheter placed 06/25/17 Dialysis per Nephrology Appreciate Vascular Surgery and Nephrology Needs outpatient dialysis set up prior to discharge Hypokalemia: Potassium:3.0 today Replace and monitor Magnesium levels normal Labile Hypertension Hypertensive Urgency currently on Lasix 80mg daily, Clonidine 0.3mg daily, Hydralazine 25mg TID, Coreg 25mg daily, Norvasc 10mg daily, Cardura 1mg daily, Imdur 60mg daily Triamterene/HCTZ 37.5/25mg discontinued, Started on Lasix Continue current medications monitor DM II A1C: May 2017: 6.5% hold Glimepiride Continue ISS Monitor BG Hyperlipidemia continue Lipitor DVT px SCDs Code Status: Full Code Disposition: Plan to discharge home when outpatient dialysis is set up Vital Signs: Date Time Temp Pulse Resp B/P (MAP) Pulse Ox O2 Delivery O2 Flow Rate FiO2 06/27/17 07:59 37.0 56 18 110/74 (86) 99 06/27/17 04:14 36.7 54 18 105/64 (78) 98 BiPAP 06/27/17 04:00 Room Air 06/26/17 23:59 Room Air 06/26/17 23:17 36.8 60 20 117/64 (81) 96 BiPAP 06/26/17 20:00 Room Air 06/26/17 19:41 36.2 60 20 147/76 (99) 97 Room Air 06/26/17 17:10 36.8 63 18 149/79 (102) 99 Room Air 06/26/17 16:00 96 Room Air 06/26/17 14:43 60 130/72 (91) 06/26/17 12:23 36.4 62 18 169/94 (119) 97 Room Air 06/26/17 12:18 36.6 53 163/89 (113) 06/26/17 12:00 95 Room Air 06/26/17 11:30 52 181/100 06/26/17 11:15 56 183/95 06/26/17 11:00 52 177/88 06/26/17 10:45 50 175/85 06/26/17 10:30 50 204/96 06/26/17 10:15 49 182/89 06/26/17 10:00 50 180/95 06/26/17 09:45 51 186/107 06/26/17 09:30 53 175/104 06/26/17 09:15 51 176/93 06/26/17 09:05 51 186/93 Lab Results: Results Past 24 Hours Test 06/26/17 12:28 06/26/17 16:33 06/26/17 20:10 06/27/17 05:18 Range/Units Bedside Glucose 102 103 98 70-99 mg/dl White Blood Count 9.21 4.8-10.8 K/uL Red Blood Count 4.47 4.7-6.1 M/uL Hemoglobin 12.2 14.0-18.0 g/dL Hematocrit 37.8 42-52 % Mean Corpuscular Volume 84.6 80-100 fL Mean Corpuscular Hemoglobin 27.3 25-34 pg Mean Corpuscular Hemoglobin Concent 32.3 32-36 g/dl RDW Standard Deviation 44.0 36.4-46.3 fL RDW Coefficient of Variation 14.4 11.5-14.5 % Platelet Count 226 130-400 K/uL Mean Platelet Volume 10.1 7.4-10.4 fL Sodium Level 138 136-145 mmol/L Potassium Level 3.0 3.5-5.1 mmol/L Chloride Level 100 98-107 mmol/L Carbon Dioxide Level 32 21-32 mmol/L Anion Gap 6.0 3-11 mmol/L Blood Urea Nitrogen 38 7-18 mg/dl Creatinine 4.07 0.60-1.40 mg/dl Est Creatinine Clear Calc Drug Dose 28.9 ml/min Estimated GFR () 17.7 Estimated GFR (Non- 15.2 BUN/Creatinine Ratio 9.4 10-20 Random Glucose 140 70-99 mg/dl Calcium Level 8.4 8.5-10.1 mg/dl Magnesium Level 2.5 1.8-2.4 mg/dl Test 06/27/17 06:43 Range/Units Bedside Glucose 146 70-99 mg/dl
[2017-06-27] MEDS ORDERED: POTASSIUM CHLORIDE 20 MEQ TABCR PO ONE (08:45)
[2017-06-27] MEDS: CEROVITE ADV FORMULA TAB PO SCH (08:46)
[2017-06-27] MEDS: ASPIRIN 81 MG ECTAB PO SCH (08:46)
[2017-06-27] MEDS: ISOSORBIDE MONONITRATE 60 MG TABCR PO SCH (08:46)
[2017-06-27] MEDS: ATORVASTATIN 10 MG TAB PO SCH (08:46)
[2017-06-27] MEDS: FUROSEMIDE 80 MG TAB PO SCH (08:47)
[2017-06-27] MEDS: DOXAZosin TAB 1 MG TAB PO SCH (08:47)
[2017-06-27] MEDS: CYANOCOBALAMIN 500 MCG TAB (VIT B-12) PO SCH (08:47)
[2017-06-27] MEDS: AMLODIPINE BESYLATE 5 MG TAB PO SCH (08:48)
[2017-06-27] MEDS: POTASSIUM CHLORIDE PWD 20 MEQ PACK PO SCH ×2 (08:48→19:51)
[2017-06-27] MEDS: CHOLECALCIFEROL 1000 INTER.UNIT TAB PO SCH (08:48)
[2017-06-27] MEDS: INSULIN ASPART 100 UNITS/ML 3 ML PEN SC SCH ×4 (08:55→21:49)
[2017-06-27 10:46] VITALS: BP 148/72; PULSE 64; TEMP 36.4; O2SAT 98
[2017-06-27 15:38] VITALS: BP_SYST 119; BP_SYST 144; BP_DIAS 48; BP_DIAS 84; PULSE 58; TEMP 36.5; O2SAT 97
[2017-06-27] MEDS: CARVEDILOL 25 MG TAB PO SCH (21:45)
[2017-06-27] MEDS: CLONIDINE HCL 0.3 MG TAB PO SCH (21:45)
[2017-06-27 23:48] VITALS: BP 151/89; PULSE 57; TEMP 36.3; O2SAT 95
[2017-06-28] VITALS (18 sets, daily range): BP systolic 127–190; BP diastolic 74–114; PULSE 48–57; TEMP 36.4–36.8; O2SAT 97
[2017-06-28 07:36] LABS: CALCIUM 8.7 mg/dl (8.5-10.1); CREATININE 4.43 mg/dl (0.60-1.40); POTASSIUM 3.3 mmol/L (3.5-5.1)
[2017-06-28] MEDS: CYANOCOBALAMIN 500 MCG TAB (VIT B-12) PO SCH (07:44)
[2017-06-28] MEDS: ATORVASTATIN 10 MG TAB PO SCH (07:44)
[2017-06-28] MEDS: POTASSIUM CHLORIDE PWD 20 MEQ PACK PO SCH (07:44)
[2017-06-28] MEDS: ASPIRIN 81 MG ECTAB PO SCH (07:44)
[2017-06-28] MEDS: CEROVITE ADV FORMULA TAB PO SCH (07:44)
[2017-06-28] MEDS: FUROSEMIDE 80 MG TAB PO SCH (07:44)
[2017-06-28] MEDS: CHOLECALCIFEROL 1000 INTER.UNIT TAB PO SCH (07:44)
[2017-06-28] MEDS: DOXAZosin TAB 1 MG TAB PO SCH (07:45)
[2017-06-28] MEDS: INSULIN ASPART 100 UNITS/ML 3 ML PEN SC SCH ×2 (08:55→13:03)
--- NOTE | 2017-06-28 09:19 | Nephrology Progress Note ---
Nephrology Progress Note Date of Service: Jun 28, 2017. Subjective 57 yo male new to dialysis. continues to have uremic symptoms with metallic taste to mouth. had two dialysis treatments so far. interested in still working but may not be able to depending on dialysis schedule. Objective Date Time Temp Pulse Resp B/P (MAP) Pulse Ox O2 Delivery O2 Flow Rate FiO2 06/28/17 08:21 36.4 50 16 128/79 (95) 97 Room Air 06/28/17 00:00 CPAP 06/27/17 23:48 36.3 57 20 151/89 (109) 95 Room Air 06/27/17 15:40 Room Air 06/27/17 15:38 36.5 58 22 119/48 (71) 97 Room Air 144/84 (104) 06/27/17 10:46 36.4 64 20 148/72 (97) 98 Room Air Physical Exam: General-aaox3, obese Eyes-no scleral icterus ENT-mmm Neck-supple Lungs-clear Heart-bradycardia Abdomen-bs+ s/nt/nd Extremities-no c/c/e Neuro-nonfocal Current Inpatient Medications Medications (Trade) Dose Ordered Sig/Juan Jose Route Start Time Stop Time Status Last Admin Dose Admin Acetaminophen (Tylenol Tab) 650 mg Q4H PRN PO 06/24/17 16:00 07/24/17 15:59 Insulin Aspart (novoLOG ASPART) SLIDING SCALE If C... ACHS SC 06/24/17 16:15 07/24/17 16:14 06/28/17 08:55 6 UNITS Glucose (Glucose 40% Gel) 15-30 GRAMS 15 GRAMS... UD PRN PO 06/24/17 16:00 07/24/17 15:59 Glucose (Glucose Chew Tab) 4-8 Tablets 4 Tabl... UD PRN PO 06/24/17 16:00 07/24/17 15:59 Dextrose (Dextrose 50% 50ML Syringe) 25-50ML OF 50% DW IV FOR... UD PRN IV 06/24/17 16:00 07/24/17 15:59 Glucagon (Glucagon Inj) 1 mg UD PRN SQ 06/24/17 16:00 07/24/17 15:59 Amlodipine Besylate (Norvasc Tab) 10 mg DAILY PO 06/25/17 09:00 07/25/17 08:59 06/27/17 08:48 10 MG Aspirin (Ecotrin Tab) 81 mg DAILY PO 06/25/17 09:00 07/25/17 08:59 06/28/17 07:44 81 MG Atorvastatin Calcium (Lipitor Tab) 10 mg QAM PO 06/25/17 09:00 07/25/17 08:59 06/28/17 07:44 10 MG Doxazosin Mesylate (Cardura Tab) 1 mg DAILY PO 06/25/17 09:00 07/25/17 08:59 06/28/17 07:45 1 MG Hydralazine HCl (Apresoline Tab) 25 mg TID PO 06/24/17 21:00 07/24/17 20:59 06/27/17 19:51 25 MG Isosorbide Mononitrate (Imdur Ext Rel Tab) 60 mg QAM PO 06/25/17 09:00 07/25/17 08:59 06/27/17 08:46 60 MG Multivitamins/ Minerals (Multivitamin W/ Minerals Tab) 1 tab DAILY PO 06/25/17 09:00 07/25/17 08:59 06/28/17 07:44 1 TAB Potassium Chloride (Klor-Con Pwd) 20 meq BID PO 06/24/17 21:00 07/24/17 20:59 06/28/17 07:44 20 MEQ Cholecalciferol (Vitamin D Tab) 2,000 inter.unit DAILY PO 06/25/17 09:00 07/25/17 08:59 06/28/17 07:44 2,000 INTER.UNIT Cyanocobalamin (Vitamin B-12 Tab) 1,000 mcg DAILY PO 06/25/17 09:00 07/25/17 08:59 06/28/17 07:44 1,000 MCG Carvedilol (Coreg Tab) 25 mg HS PO 06/24/17 21:00 07/25/17 08:59 06/27/17 21:45 25 MG Clonidine HCl (Catapres Tab) 0.3 mg HS PO 06/24/17 21:00 07/25/17 08:59 06/27/17 21:45 0.3 MG Furosemide (Lasix Tab) 80 mg QAM PO 06/26/17 09:00 07/26/17 08:59 06/28/17 07:44 80 MG Last 24 Hours Test 06/27/17 11:36 06/27/17 16:46 06/27/17 20:16 06/28/17 06:31 Bedside Glucose 119 mg/dl 98 mg/dl 150 mg/dl Sodium Level 134 mmol/L Potassium Level 3.3 mmol/L Chloride Level 97 mmol/L Carbon Dioxide Level 30 mmol/L Anion Gap 7.0 mmol/L Blood Urea Nitrogen 48 mg/dl Creatinine 4.43 mg/dl Est Creatinine Clear Calc Drug Dose 26.5 ml/min Estimated GFR () 15.9 Estimated GFR (Non- 13.8 BUN/Creatinine Ratio 10.9 Random Glucose 157 mg/dl Calcium Level 8.7 mg/dl Magnesium Level 2.7 mg/dl Assessment & Plan ESRD-for dialysis today on a 4k bath. continues to have low k and requiring potassium supplementation. will monitor k closely as an outpt. hopefully after several weeks on dialysis, uremic symptoms will improve. using tunneled line for now.
[2017-06-28] MEDS: ISOSORBIDE MONONITRATE 60 MG TABCR PO SCH (13:01)
[2017-06-28] MEDS: AMLODIPINE BESYLATE 5 MG TAB PO SCH (13:01)
--- NOTE | 2017-06-28 16:10 | Progress Note ---
Internal Med Progress Note Date of Service: Jun 28, 2017. Provider Documentation: SUBJECTIVE: Seen and examined at bedside No significant change from yesterday Had Dialysis today No complaints Denies any chest pain, SOB, dizziness OBJECTIVE: Vital Signs-as noted below Physical Exam: General Appearance:Moderately built and nourished, no apparent distress Head: normocephalic, Atraumatic Eyes: normal inspection, EOMI, PERRL Neck: supple, Trachea midline Respiratory/Chest: Normal breath sounds, CTA Cardiovascular: S1, S2, No murmur Abdomen/GI:Soft, Non tender, Bowel sounds present Extremities/Musculoskelatal:normal inspection, Trace edema Neurologic/Psych:AAOX3, grossly no focal neurological deficits Skin: normal color, warm Lab data as noted below. ASSESSMENT & PLAN: Patient is a 57 yr old male with a PMH of CKD stage V not on dialysis, labile HTN, DM II, hyperlipidemia - sent from nephrology office to get a tunneled catheter for dialysis. ESRD Had tunneled catheter placed 06/25/17 Dialysis per Nephrology Appreciate Vascular Surgery and Nephrology Needs outpatient dialysis set up prior to discharge Hypokalemia: Potassium:3.3 today Replace and monitor Magnesium levels normal Labile Hypertension Hypertensive Urgency currently on Lasix 80mg daily, Clonidine 0.3mg daily, Hydralazine 25mg TID, Coreg 25mg daily, Norvasc 10mg daily, Cardura 1mg daily, Imdur 60mg daily Triamterene/HCTZ 37.5/25mg discontinued, Started on Lasix Continue current medications monitor DM II A1C: May 2017: 6.5% hold Glimepiride Continue ISS Monitor BG Hyperlipidemia continue Lipitor DVT px SCDs Code Status: Full Code Disposition: Plan to discharge home today Follow up with your PCP in 1 week Follow up with your School Coordinator in 2 weeks Get dialysis as per your recommendations from your School Coordinator Seek immediate medical attention if your symptoms reoccur or worsen Vital Signs: Date Time Temp Pulse Resp B/P (MAP) Pulse Ox O2 Delivery O2 Flow Rate FiO2 06/28/17 14:05 129/74 (92) 06/28/17 13:22 97 Room Air 06/28/17 12:34 36.8 50 182/111 (134) 06/28/17 12:15 50 166/97 06/28/17 12:00 50 164/96 06/28/17 11:45 51 164/99 06/28/17 11:30 51 185/99 06/28/17 11:15 48 177/84 06/28/17 11:00 51 182/114 06/28/17 10:45 49 150/90 06/28/17 10:30 50 190/108 06/28/17 10:15 50 152/79 06/28/17 10:00 52 131/96 06/28/17 09:45 57 142/79 06/28/17 09:30 50 148/82 06/28/17 09:16 36.5 50 127/74 (91) 06/28/17 08:21 36.4 50 16 128/79 (95) 97 Room Air 06/28/17 08:00 Room Air 06/28/17 00:00 CPAP 06/27/17 23:48 36.3 57 20 151/89 (109) 95 Room Air Lab Results: Results Past 24 Hours Test 06/27/17 16:46 06/27/17 20:16 06/28/17 06:31 06/28/17 07:30 Range/Units Bedside Glucose 98 150 185 70-99 mg/dl Sodium Level 134 136-145 mmol/L Potassium Level 3.3 3.5-5.1 mmol/L Chloride Level 97 98-107 mmol/L Carbon Dioxide Level 30 21-32 mmol/L Anion Gap 7.0 3-11 mmol/L Blood Urea Nitrogen 48 7-18 mg/dl Creatinine 4.43 0.60-1.40 mg/dl Est Creatinine Clear Calc Drug Dose 26.5 ml/min Estimated GFR () 15.9 Estimated GFR (Non- 13.8 BUN/Creatinine Ratio 10.9 10-20 Random Glucose 157 70-99 mg/dl Calcium Level 8.7 8.5-10.1 mg/dl Magnesium Level 2.7 1.8-2.4 mg/dl Test 06/28/17 11:47 Range/Units Bedside Glucose 105 70-99 mg/dl
[2017-06-28] MEDS ORDERED: LSX80 PO (16:11)
--- NOTE | 2017-06-28 16:14 | Discharge Summary ---
Discharge Summary Date of Service Jun 28, 2017. Discharge Summary Admission Date: Jun 24, 2017 at 15:25 Discharge Date: Jun 28, 2017 Discharge Disposition: Home Principal Diagnosis: ESRD, Uremia Procedures: CXR: Cardiomegaly and radiographic evidence of mild pulmonary vascular congestion/fluid overload. Venous Doppler: 1. Patent bilateral cephalic and basilic veins. 2. Please note that detailed size and depth of the bilateral cephalic and basilic veins is located within the PACS system. Dialysis Catcher Placement and Hemodialysis Consultations: Vascular Surgery, Nephrology Pending Studies/Follow-Up: Follow up with your PCP in 1 week Follow up with your Reading Efficiency Course Director in 2 weeks Get dialysis as per your recommendations from your Reading E[employer] Course Director Seek immediate medical attention if your symptoms reoccur or worsen Medication Changes: Triamterene/HCTZ 37.5/25mg was discontinued and you are started on Lasix 80mg daily Medication Reconciliation New Medications: Furosemide (Furosemide) 80 Mg Tab 80 MG PO QAM for 30 Days, #30 TAB 1 Refill Continued Medications: Amlodipine (Norvasc) 10 Mg Tab 10 MG PO DAILY, TAB Aspirin (Aspirin Ec) 81 Mg Tab 81 MG PO DAILY Atorvastatin (Lipitor) 10 Mg Tab 10 MG PO QAM, #30 TAB Carvedilol (Coreg) 25 Mg Tab 25 MG PO BID, TAB Cholecalciferol (Vitamin D3) 2,000 Unit Tab 1 TAB PO DAILY for 30 Days, #30 TAB 5 Refills Clonidine Hcl (Catapres) 0.3 Mg Tab 0.3 MG PO DAILY, TAB Cyanocobalamin (Vitamin B12) 1,000 Mcg Tab 1000 MCG PO DAILY Doxazosin Mesylate (Cardura) 1 Mg Tab 1 MG PO DAILY Glimepiride (Glimepiride) 1 Mg Tab 1 TAB PO BID for 30 Days, #60 TAB 5 Refills Hydralazine Hcl (Apresoline) 25 Mg Tab 25 MG PO TID, #90 TAB Isosorbide Mononitrate Ext Rel (Imdur Ext Rel) 60 Mg Ertab 60 MG PO QAM, TAB Multivitamins/Minerals (Certavite/Antioxidants) 1 Tab Tab 1 TAB PO DAILY Potassium Chloride (Klor-Con) 20 Meq Pack 20 MG PO BID [kidney stuff] () 1 CAP PO DAILY [peony immune] () 1 CAP PEG DAILY Discontinued Medications: Triamterene/Hctz (Triamterene/Hctz 37.5-25MG) 1 Tab Tab 1 TAB PO HS for 30 Days, TAB 5 Refills Admission Information HPI (per Admitting provider): This is a 57 year old male with a PMH of CKD stage V not on dialysis, labile hypertension, DM2, hyperlipidemia - sent from nephrology office to get a tunneled catheter for dialysis. Patient states he does not have many symptoms; denies chest pain, shortness of breath, denies nausea/vomiting/diarrhea. Still producing urine. Denies any urinary symptoms. No other issues to note today. Physical Exam (per Admitting): General Appearance: WD/WN, no apparent distress, + obese Head: normocephalic, atraumatic Eyes: normal inspection ENT: hearing grossly normal Respiratory/Chest: chest non-tender, lungs clear, normal breath sounds, no respiratory distress, no accessory muscle use Cardiovascular: regular rate, rhythm, no murmur, normal peripheral pulses Abdomen/GI: normal bowel sounds, non tender, soft, + distended Back: normal inspection, no CVA tenderness, no muscle spasm, normal range of motion Extremities/Musculoskelatal: normal inspection, no calf tenderness, normal capillary refill, normal range of motion, + pertinent finding 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 ESRD Had tunneled catheter placed 06/25/17 Dialysis per Nephrology Appreciate Vascular Surgery and Nephrology Needs outpatient dialysis set up prior to discharge Hypokalemia: Potassium:3.3 today Replace and monitor Magnesium levels normal Labile Hypertension Hypertensive Urgency currently on Lasix 80mg daily, Clonidine 0.3mg daily, Hydralazine 25mg TID, Coreg 25mg daily, Norvasc 10mg daily, Cardura 1mg daily, Imdur 60mg daily Triamterene/HCTZ 37.5/25mg discontinued, Started on Lasix Continue current medications monitor DM II A1C: May 2017: 6.5% hold Glimepiride Continue ISS Monitor BG Hyperlipidemia continue Lipitor DVT px SCDs Code Status: Full Code Disposition: Plan to discharge home today Follow up with your PCP in 1 week Follow up with your [employer] E[employer] Course Director in 2 weeks Get dialysis as per your recommendations from your Reading E[employer] Course Director Seek immediate medical attention if your symptoms reoccur or worsen Total time spent on discharge = 33 minutes This includes examination of the patient, discharge planning, medication reconciliation, and communication with other providers. Discharge Instructions Discharge Instructions Date of Service Jun 28, 2017. Admission Reason for Admission: Uremia Discharge Discharge Diagnosis / Problem: ESRD, Uremia Discharge Goals Goal(s): Decrease discomfort, Improve function Activity Recommendations Activity Limitations: resume your previous activity Exercise/Sports Limitations: as tolerated . Instructions / Follow-Up Instructions / Follow-Up Follow up with your PCP in 1 week Follow up with your Reading E[employer] Course Director in 2 weeks Get dialysis as per your recommendations from your [employer] E[employer] Course Director Seek immediate medical attention if your symptoms reoccur or worsen Medication Changes: Triamterene/HCTZ 37.5/25mg was discontinued and you are started on Lasix 80mg daily Current Hospital Diet Patient's current hospital diet: Diabetes Type 2 Diet, Renal Diet Discharge Diet Recommended Diet: Regular Diet, Diabetes Type 2 Diet Procedures Procedures Performed: Perm Cath Insertion, Right Jugular Approach Ultrasound Localization of Right Jugular Vein Fluoroscopy for Positioning Moderate Sedation [id number] Pending Studies Studies pending at discharge: no Medical Emergencies . Who to Call and When: Medical Emergencies: If at any time you feel your situation is an emergency, please call 911 immediately. . Non-Emergent Contact Non-Emergency issues call your: Primary Care Provider, [employer] E[employer] Course Director Call Non-Emergent contact if: you have a fever, your pain is not controlled, your pain is worsening, your pain is unusual for you, your pain is concerning you, wound has increased drainage, wound has increased redness, wound has increased pain, you have any medication questions Seek immediate medical attention if your symptoms reoccur or worsen . . "Provider Documentation" section prepared by Richy Barlow. . VTE Core Measure Inpt VTE Proph given/why not?: SCD's <Electronically signed by Richy Barlow MD> Signed: 06/28/17 2291 Signed: The status of this report is Signed * If report status is Draft, the document has not been finalized by the responsible provider.
== END 2017-06-28 17:46 | disposition home or self-care (01) | DRG 291 ==
LOC: C.2T 15:25 → EDBEDREQ 06-27 09:22 → ENRESERV 06-27 09:37 → CANRESERV 06-27 09:37 → ENRESERV 06-27 09:46 → C.MS4W 06-27 10:41
PROVIDERS: ADMIT Family Medicine; ATTEND Internal Medicine
PROC: 0JH60XZ Insertion of Tunneled Vascular Access Device into Chest Subcutaneous Tissue and Fascia, Open Approach (ICD-10-PCS; principal; 2017-06-25 08:00)
PROC: 02HV33Z Insertion of Infusion Device into Superior Vena Cava, Percutaneous Approach (ICD-10-PCS; principal; 2017-06-25 08:00)
DX: I13.2 Hypertensive heart and chronic kidney disease with heart failure and with stage 5 chronic kidney disease, or end stage renal disease (principal); N18.6 End stage renal disease; I50.32 Chronic diastolic (congestive) heart failure; E11.22 Type 2 diabetes mellitus with diabetic chronic kidney disease; I16.0 Hypertensive urgency; E87.6 Hypokalemia; E78.5 Hyperlipidemia, unspecified; G47.33 Obstructive sleep apnea (adult) (pediatric); Z79.899 Other long term (current) drug therapy; Z79.84 Long term (current) use of oral hypoglycemic drugs; Z79.82 Long term (current) use of aspirin; Z99.2 Dependence on renal dialysis; Z87.891 Personal history of nicotine dependence; Z83.3 Family history of diabetes mellitus; Z82.49 Family history of ischemic heart disease and other diseases of the circulatory system; Z82.3 Family history of stroke; Z83.49 Family history of other endocrine, nutritional and metabolic diseases

== ENCOUNTER → 2017-07-21 | Day surgery (SDC) | payer OTHER ==
[2017-07-15 08:46] VITALS: BMI 44.0
--- NOTE | 2017-07-15 09:25 | PAT Medication Instructions ---
Service Date Jul 15, 2017. Current Home Medication List Amlodipine (Norvasc), 10 MG PO QPM Aspirin (Aspirin Ec), 81 MG PO QPM Atorvastatin (Lipitor), 10 MG PO QAM Carvedilol (Coreg), 25 MG PO QPM Cholecalciferol (Vitamin D3), 1 TAB PO BID Clonidine Hcl (Catapres), 0.3 MG PO QPM Cyanocobalamin (Vitamin B12), 2,000 MCG PO BID Doxazosin Mesylate (Cardura), 1 MG PO QPM Fiber Laxative (Fiber Laxative), 1 DOSE PO QPM Furosemide (Lasix), 80 MG PO QPM Hydralazine Hcl (Apresoline), 25 MG PO TID Isosorbide Mononitrate Ext Rel (Imdur Ext Rel), 60 MG PO QPM Multivitamins/Minerals (Certavite/Antioxidants), 1 TAB PO QPM Potassium Ext Rel (Klor-Con), 20 MEQ PO BID [peony immune], 1 CAP PO QPM Medication Instructions For Your Scheduled Surgery -Contact your surgeon for instructions for: Aspirin (Aspirin Ec), 81 MG PO QPM - Hold the following medications starting today: [peony immune], 1 CAP PO QPM - Hold the following medications the morning of surgery: Cholecalciferol (Vitamin D3), 1 TAB PO BID Cyanocobalamin (Vitamin B12), 2,000 MCG PO BID Potassium Ext Rel (Klor-Con), 20 MEQ PO BID - Take the following medications the morning of surgery with a sip of water: Atorvastatin (Lipitor), 10 MG PO QAM Hydralazine Hcl (Apresoline), 25 MG PO TID - Take the following medications as scheduled the night before surgery: Amlodipine (Norvasc), 10 MG PO QPM Carvedilol (Coreg), 25 MG PO QPM Cholecalciferol (Vitamin D3), 1 TAB PO BID Clonidine Hcl (Catapres), 0.3 MG PO QPM Cyanocobalamin (Vitamin B12), 2,000 MCG PO BID Doxazosin Mesylate (Cardura), 1 MG PO QPM Fiber Laxative (Fiber Laxative), 1 DOSE PO QPM Furosemide (Lasix), 80 MG PO QPM Hydralazine Hcl (Apresoline), 25 MG PO TID Isosorbide Mononitrate Ext Rel (Imdur Ext Rel), 60 MG PO QPM Multivitamins/Minerals (Certavite/Antioxidants), 1 TAB PO QPM Potassium Ext Rel (Klor-Con), 20 MEQ PO BID If you have any questions please call us at [phone] or [phone] or [phone]
[2017-07-15 10:20] LABS: BASO % 0.6 %; BASO ABS # 0.05 K/uL (0-0.2); EOS % 5.6 %; EOS ABS # 0.48 K/uL (0-0.5); HEMATOCRIT 36.7 % (42-52); HEMOGLOBIN 12.2 g/dL (14.0-18.0); IG# 0.06 K/uL (0.00-0.02); LYMPH % 26.7 %; LYMPH ABS # 2.28 K/uL (1.2-3.4); MEAN CORPUSCULAR HEMOGLOBIN 27.9 pg (25-34); MEAN CORPUSCULAR HGB CONC 33.2 g/dl (32-36); MEAN PLATELET VOLUME 9.6 fL (7.4-10.4); MONO % 5.7 %; MONO ABS # 0.49 K/uL (0.11-0.59); NEUT % 60.7 %; NEUT ABS # 5.17 K/uL (1.4-6.5); PLATELET COUNT 243 K/uL (130-400); RED CELL DISTRIBUTION WIDTH CV 14.1 % (11.5-14.5); RED CELL DISTRIBUTION WIDTH SD 42.6 fL (36.4-46.3); WHITE BLOOD COUNT 8.53 K/uL (4.8-10.8)
[2017-07-15 10:29] LABS: CALCIUM 9.3 mg/dl (8.5-10.1); CREATININE 4.39 mg/dl (0.60-1.40); POTASSIUM 3.9 mmol/L (3.5-5.1)
--- NOTE | 2017-07-15 10:29 | DIAGNOSTIC IMAGING REPORT ---
TWO VIEW CHEST CLINICAL HISTORY: Preoperative examination. FINDINGS: PA and lateral chest radiographs are compared to study dated 06/25/2017. A right internal jugular central venous catheter is unchanged in position. The heart is enlarged and there is atherosclerotic calcification of the thoracic aorta. The pulmonary vasculature is noncongested. The lungs and pleural spaces are clear. There is no pneumothorax. The bony thorax appears intact. Degenerative change is seen throughout the thoracic spine. IMPRESSION: Cardiomegaly with no active disease in the chest. Electronically signed by: Rashad Maloney M.D. 07/15/2017 10:28 AM Dictated Date/Time: 07/15/2017 10:27 AM
[2017-07-15 10:31] LABS: PTT PATIENT 26.1 SECONDS (21.0-31.0)
[~2017-07-21] VITALS: Ht 182.9 cm; Wt 145.8 kg
[~2017-07-21] MED LIST changes: +ATOR10TA82 PO; +ATROPINE SULFATE 0.1 MG/ML 5ML SYR IV PRN; +BUPIVACAINE/EPINEPHRINE 0.5% MPF 1:200,000 30 ML VIAL ONE; +CEFAZOLIN 3000MG IV PUSH 22.5 ML IV SCH; +CHOL20007 PO; +CNT PO; +CYAN100020 PO; +EpHEDrine SULFATE INJ 50 MG/ML AMP IV PRN; +FENTANYL CITRATE INJ 50 MCG/1 ML 2 ML VIAL IV PRN; +FENTANYL CITRATE INJ 50 MCG/1 ML 2 ML VIAL ONE; +FIBER PO; -FURO40TA3 PO; +FURO80TA63 PO; +GELATIN SPONGE 12-7MM ONE; -GLIM2TAB PO; +HEPARIN SOD (PORCINE) 1000 UNIT/ML 10 ML VIAL ONE; +ISOS60TA25 PO; -KCLP20 PO; +LIDOCAINE HCL 1% 20 ML VIAL ONE; +LIDOCAINE HCL 2% 2 ML VIAL (20MG/ML) ONE; -LPT10 PO; +MIDAZOLAM HCL 1 MG/ML 2ML VIAL ONE; +ONDANSETRON INJ 2 MG/ML 2 ML VIAL IV PRN; +OXYC-57 PO; +PERCOCET HOME PACK PO ONE; +POTA20TA16 PO; +PROPOFOL IV EMULSION 10 MG/ML 20 ML VIAL IV ONE; +SODIUM CHLORIDE 0.9% 1000ML 1,000 ML IV SCH; +THROMBIN FOR SOLN 20000 UNIT KIT ONE; +[UNRECOGNIZED DRUG - OTHER] PO; +[UNRECOGNIZED DRUG - REMARK] SCH
[2017-07-21 09:20] VITALS: BP 173/84; PULSE 61; TEMP 36.9; O2SAT 98; Ht 182.9 cm; Wt 145.8 kg
[2017-07-21 10:41] LABS: CREATININE 3.7 mg/dl (0.60-1.40); POTASSIUM 3.5 mmol/L (3.5-5.1)
--- NOTE | 2017-07-21 11:30 | History and Physical ---
History & Physical Date of Service Jul 21, 2017. History & Physical Chief Complaint ESRD, need permcath for hd History of Present Illness The patient is a 57 year old male with hx of htn, dmII, CKD, and worsening kidney function requiring dialysis. He had a permcath inserted to begin HD. He is now admitted for a left wrist av fistula creation. Denies [place], fever, chills, chest pain, SOB, abd pain, N/V, rest pain, claudication, other complaints. Allergies Coded Allergies: No Known Allergies (Unverified , 10/12/14) Home Medications Scheduled Amlodipine (Norvasc), 10 MG PO DAILY Aspirin (Aspirin Ec), 81 MG PO DAILY Atorvastatin (Lipitor), 10 MG PO QAM Carvedilol (Coreg), 25 MG PO BID Cholecalciferol (Vitamin D3), 1 TAB PO DAILY Clonidine Hcl (Catapres), 0.3 MG PO DAILY Cyanocobalamin (Vitamin B12), 1,000 MCG PO DAILY Doxazosin Mesylate (Cardura), 1 MG PO DAILY Glimepiride (Glimepiride), 1 TAB PO BID Hydralazine Hcl (Apresoline), 25 MG PO TID Isosorbide Mononitrate Ext Rel (Imdur Ext Rel), 60 MG PO QAM Multivitamins/Minerals (Certavite/Antioxidants), 1 TAB PO DAILY Potassium Chloride (Klor-Con), 20 MG PO BID Triamterene/Hctz (Triamterene/Hctz 37.5-25MG), 1 TAB PO HS [kidney stuff], 1 CAP PO DAILY [peony immune], 1 CAP PEG DAILY Problem List Medical Problems: (1) Chest pain (2) Chronic diastolic CHF (congestive heart failure) (3) CKD (chronic kidney disease), stage IV (4) Diabetes mellitus, type II (5) DM2 (diabetes mellitus, type 2) (6) ESRD (end stage renal disease) (7) HLD (hyperlipidemia) (8) Hypertension (9) Sleep apnea Surgical Problems: (1) Status post carpal tunnel release Surgical / Medical History Hx Cardiac Surgery: No Hx Abdominal Surgery: No Hx Cancer Surgery: No Hx Thoracic Surgery: No Hx Orthopedic: Yes (Carpal tunnel release right ) Hx Urinary Tract Surgery: No Past Medical/Surgical History: Diabetes, High Cholesterol, Hypertension, Kidney Disease Family History Amyloidosis FATHER Diabetes mellitus MOTHER FHx: heart disease Hypertension MOTHER Stroke MOTHER Social History Smoking Status: Former Smoker Hx Tobacco Use In Past Year?: Yes (QUIT SMOKING ) Hx Alcohol Use - Type & Amnt: Yes Hx Substance Use -Type & Amnt: No Review of Systems Constitutional: + malaise, No chills, No fever Skin: No change in color Eyes: No visual changes ENMT: No sore throat Respiratory: No cough, No YOUSIF, No hemoptysis, No short of breath Cardiovascular: No chest pain, No palpitations, No syncope Gastrointestinal: No abdominal pain, No nausea, No vomiting Neurologic: No dizziness, No headache, No numbness, No tingling Physical Exam Constitutional: General Apperance: well-nourished, well-developed, obese Level of Distress: NAD, chronically ill (mildly) Ambulation: ambulating normally Psychiatric: Mental Status: active & alert, normal mood, normal affect Orientation: oriented except where noted, to time, to place, to person Memory: recent memory normal, remote memory normal Head: normocephalic, atraumatic Eyes: EOM: EOMI ENMT: normal ENT inspection Neck: supple, trachea midline Lungs: Respiratory effort: no dyspnea Auscultation: no wheezing, no rhonchi, decreased breath sounds Cardiovascular: Apical Impulse: not displaced Heart Auscultation: RRR, no rubs, no gallops Peripheral Pulses: Pulses: full and equal, in all extremities except if noted Bruits: none appreciated Carotid Pulse: normal on the left, normal on the right Brachial Pulses: normal on the left, normal on the right Radial Pulse: normal on the left, normal on the right Femoral Pulse: normal on the left, normal on the right Posterior Tibialis Pulse: decreased on the left, decreased on the right Dorsalis Pedis Pulse: decreased on the left, decreased on the right Abdomen: Bowel Sounds: normal Inspection & Palpation: soft, non-distended, no tenderness, guarding & rebound Musculoskeletal: normal strength (5/5 throughout), normal tone Extremities: Upper Right: no cyanosis, no varicosities, no palpable cord, no edema Upper Left: no cyanosis, no varicosities, no edema Lower Right: no cyanosis, no varicosities, no edema Lower Left: no cyanosis, no varicosities, no edema Neurologic: Cranial Nerves: grossly intact Sensation: grossly intact Assessment and Plan ASSESSMENT and PLAN: ESRD Plan: Patient is admitted for a left wrist av fistula creation. I have discussed the risks options and benefits of the procedure with the patient. The patient understands the risks options and benefits and agrees to the procedure.
--- NOTE | 2017-07-21 14:57 | [facility] Post Operative Brief Note ---
Immediate Operative Summary Operative Date Jul 21, 2017. Pre-Operative Diagnosis End-Stage Renal Disease Post-Operative Diagnosis End-Stage Renal Disease Procedure(s) Performed Creation of Left Wrist Arteriovenous Fistula Surgeon Dr Antoine Annealer Helper Surgeon(s) Tanvi Jefferson PA-C, Amairani Bauer Estimated Blood Loss 10cc Findings Consistent with Post-Op Diagnosis Specimens None per surgeon Drains None Anesthesia Type MAC Complication(s) none Disposition Accompanied Pt To Recover: no Disposition: Recovery Room / PACU
--- NOTE | 2017-07-21 15:04 | Discharge Instructions ---
Discharge Instructions Date of Service Jul 21, 2017. Visit Reason for Visit: End Stage Renal Disease Discharge Discharge Diagnosis / Problem: End stage renal disease Discharge Goals Goal(s): Therapeutic intervention Activity Recommendations Activity Limitations: per Instructions/Follow-up section Anesthesia . Post Anesthesia Instructions: If you have had General Anesthesia or IV Sedation: * Do not drive today. * Resume driving when surgeon permits. * Do not make important decisions or sign legal documents today. * Call surgeon for: 1. Temperature elevations greater than 101 degrees F. 2. Uncontrollable pain. 3. Excessive bleeding. 4. Persistent nausea and vomiting. 5. Medication intolerance (nausea, vomiting or rash). * For nausea and vomiting use only clear liquids such as: tea, soda, bouillon until nausea subsides, then gradually increase diet as tolerated. * If you have any concerns or questions, call your surgeon's office. If physician is unavailable and it is an emergency, call 911 or go to the nearest emergency room. . Instructions / Follow-Up Instructions / Follow-Up Call [phone] to schedule a follow up appointment if one not already scheduled. ACTIVITY RECOMMENDATIONS: See Above SPECIAL CARE INSTRUCTIONS: Call your doctor if: * Temperature above 101 degrees * Pain not relieved by pain medicine ordered * There is increased drainage or redness from any incision * You have any unanswered questions or concerns. Diet Recommendations Recommended Home Diet: resume previous diet Procedures Procedures Performed: Creation of Left Wrist Arteriovenous Fistula Pending Studies Studies pending at discharge: no Medical Emergencies . Who to Call and When: Medical Emergencies: If at any time you feel your situation is an emergency, please call 911 immediately. . Non-Emergent Contact Non-Emergency issues call your: Surgeon . . "Provider Documentation" section prepared by Juan Antoine. .
--- NOTE | 2017-07-21 15:28 | OPERATIVE REPORT ---
DATE OF OPERATION: 07/21/2017 PREOPERATIVE DIAGNOSIS: End-stage renal disease. POSTOPERATIVE DIAGNOSIS: End-stage renal disease. PROCEDURE: Creation of left radiocephalic AV fistula. SURGEON: Dr. Juan Antoine. ICE CARVER: Dr. Amairani Bauer; Tanvi Tee PA-C. ESTIMATED BLOOD LOSS: 10 mL. SPECIMENS: None. DRAINS: None. ANESTHESIA: Monitored anesthesia care plus local. COMPLICATIONS: None. INDICATIONS: Mr. Jae Ricks is a 57-year-old gentleman with history of hypertension, type 2 diabetes, and worsening kidney function, who will ultimately require dialysis. He had a PermCath inserted to begin HD. He was recommended to undergo more permanent dialysis access creation in the form of an arteriovenous fistula. He appeared to have adequate cephalic vein in the left forearm. For this reason, he was recommended to undergo a left radiocephalic AV fistula. The risks, benefits and alternatives were discussed with the patient and he consented to the procedure. DESCRIPTION OF PROCEDURE: The patient was taken to the operating room and placed in supine position. His left hand and forearm were prepped and draped in the usual sterile fashion. A safety timeout was performed and the patient, procedure, and sidedness were correctly identified. Sedation was administered by our anesthesia colleagues. Local anesthesia was used to anesthetize the skin between the cephalic vein and radial artery over the left wrist several centimeters proximal to the wrist. A 5 cm incision was made with an 11 blade scalpel. Bovie electrocautery was used to divide subcutaneous tissues. The cephalic vein was easily identified. We then turned our attention to the radial artery which is approximately 1 cm deep to the subcutaneous tissues. This was identified and dissected circumferentially. We then turned our attention back to the cephalic vein. It was dissected several centimeters distally towards the wrist. It was divided and the remaining portion was ligated with a 2-0 silk tie. Side branches of the cephalic vein were then ligated and divided. The patient was systematically heparinized with 3000 units of intravenous heparin. The radial artery was then clamped after several minutes. An arteriotomy was made in the radial artery with an 11 blade scalpel. This was extended with Kim scissors. Vein after being appropriately dilated was cut to length and spatulated. It was anastomosed to the radial artery with 7-0 Prolene in a running fashion. Prior to completion of the anastomosis, all arteries were back bled and the anastomosis was flushed. Anastomosis appeared hemostatic. Following completion of the anastomosis, 2 the other side branches were identified and ligated. The fistula had a good thrill following side branch ligation. There was still a palpable radial pulse following fistula creation. The wound was irrigated and appeared hemostatic. Subcutaneous tissues were reapproximated with 3-0 Vicryl suture in running fashion. Skin was reapproximated with 4-0 Vicryl in a running subcuticular fashion. Dermabond skin glue was applied. The patient tolerated the procedure well and there were no immediate complications. He was transferred to the recovery area in stable condition. Dr. Juan Antoine was present for the entire procedure. I attest to the content of the Intraoperative Record and any orders documented therein. Any exception s are noted below.
--- NOTE | 2017-07-21 15:35 | Anesthesiology Progress Note ---
Anesthesia Post Op Note Date & Time Jul 21, 2017 at 15:35 Vital Signs Pain Intensity: 0 Vital Signs Past 12 Hours Date Time Temp Pulse Resp B/P (MAP) Pulse Ox O2 Delivery O2 Flow Rate FiO2 07/21/17 15:30 58 16 163/82 96 Room Air 07/21/17 15:20 58 16 164/84 96 Room Air 07/21/17 15:14 36.6 60 16 177/94 100 Oxymask 10 07/21/17 09:20 36.9 61 20 173/84 (113) 98 Room Air Notes Mental Status: alert / awake / arousable, participated in evaluation Nausea / Vomiting: adequately controlled Pain: adequately controlled Airway Patency, RR, SpO2: stable & adequate BP & HR: stable & adequate Hydration State: stable & adequate Anesthetic Complications: no major complications apparent
[2017-07-21 15:45] VITALS: BP 160/76; PULSE 60; TEMP 37; O2SAT 95
[2017-07-21 16:15] VITALS: BP 165/90; PULSE 71; O2SAT 96
[2017-07-21 16:55] VITALS: BP_SYST 185; BP_SYST 186; BP_DIAS 97; BP_DIAS 98; PULSE 86; TEMP 37.6; O2SAT 97
== END | disposition home or self-care (01) ==
LOC: C.ACU 08:20
PROVIDERS: ATTEND Surgery Vascular Surgery
DX: I13.2 Hypertensive heart and chronic kidney disease with heart failure and with stage 5 chronic kidney disease, or end stage renal disease (principal); N18.6 End stage renal disease; I50.9 Heart failure, unspecified; E78.5 Hyperlipidemia, unspecified; E11.9 Type 2 diabetes mellitus without complications; G47.33 Obstructive sleep apnea (adult) (pediatric); Z99.89 Dependence on other enabling machines and devices; Z79.82 Long term (current) use of aspirin; Z87.891 Personal history of nicotine dependence; Z83.3 Family history of diabetes mellitus; Z82.49 Family history of ischemic heart disease and other diseases of the circulatory system; Z82.3 Family history of stroke

== ENCOUNTER 2017-12-09 11:05 | Day surgery (SDC) | payer OTHER, BC ==
[2017-12-07 11:25] VITALS: BMI 41.0
--- NOTE | 2017-12-08 09:09 | History and Physical ---
History & Physical Date of Service Dec 08, 2017. History & Physical Chief Complaint ESRD, malfunctioning av fistula History of Present Illness The patient is a 57 year old male with hx of htn, dmII, CKD, and worsening kidney function requiring dialysis. He had a permcath inserted to begin HD. He then had a left wrist av fistula creation. The permcath was removed. The fistula is not working well at this time. He had a fistulogram with no intervention needed. An USN showed the fistula to be too deep. He has now clotted his fistula. Denies MUHAMMAD, fever, chills, chest pain, SOB, abd pain, N/V, rest pain, claudication, other complaints. Allergies Coded Allergies: No Known Allergies (Unverified , 10/12/14) Home Medications Scheduled Amlodipine (Norvasc), 10 MG PO DAILY Aspirin (Aspirin Ec), 81 MG PO DAILY Atorvastatin (Lipitor), 10 MG PO QAM Carvedilol (Coreg), 25 MG PO BID Cholecalciferol (Vitamin D3), 1 TAB PO DAILY Clonidine Hcl (Catapres), 0.3 MG PO DAILY Cyanocobalamin (Vitamin B12), 1,000 MCG PO DAILY Doxazosin Mesylate (Cardura), 1 MG PO DAILY Glimepiride (Glimepiride), 1 TAB PO BID Hydralazine Hcl (Apresoline), 25 MG PO TID Isosorbide Mononitrate Ext Rel (Imdur Ext Rel), 60 MG PO QAM Multivitamins/Minerals (Certavite/Antioxidants), 1 TAB PO DAILY Potassium Chloride (Klor-Con), 20 MG PO BID Triamterene/Hctz (Triamterene/Hctz 37.5-25MG), 1 TAB PO HS [kidney stuff], 1 CAP PO DAILY [peony immune], 1 CAP PEG DAILY Problem List Medical Problems: (1) Chest pain (2) Chronic diastolic CHF (congestive heart failure) (3) CKD (chronic kidney disease), stage IV (4) Diabetes mellitus, type II (5) DM2 (diabetes mellitus, type 2) (6) ESRD (end stage renal disease) (7) HLD (hyperlipidemia) (8) Hypertension (9) Sleep apnea Surgical Problems: (1) Status post carpal tunnel release Surgical / Medical History Hx Cardiac Surgery: No Hx Abdominal Surgery: No Hx Cancer Surgery: No Hx Thoracic Surgery: No Hx Orthopedic: Yes (Carpal tunnel release right ) Hx Urinary Tract Surgery: No Past Medical/Surgical History: Diabetes, High Cholesterol, Hypertension, Kidney Disease Family History Amyloidosis FATHER Diabetes mellitus MOTHER FHx: heart disease Hypertension MOTHER Stroke MOTHER Social History Smoking Status: Former Smoker Hx Tobacco Use In Past Year?: Yes (QUIT SMOKING ) Hx Alcohol Use - Type & Amnt: Yes Hx Substance Use -Type & Amnt: No Review of Systems Constitutional: + malaise, No chills, No fever Skin: No change in color Eyes: No visual changes ENMT: No sore throat Respiratory: No cough, No YOUSIF, No hemoptysis, No short of breath Cardiovascular: No chest pain, No palpitations, No syncope Gastrointestinal: No abdominal pain, No nausea, No vomiting Neurologic: No dizziness, No headache, No numbness, No tingling Physical Exam Constitutional: General Apperance: well-nourished, well-developed, obese Level of Distress: NAD, chronically ill (mildly) Ambulation: ambulating normally Psychiatric: Mental Status: active & alert, normal mood, normal affect Orientation: oriented except where noted, to time, to place, to person Memory: recent memory normal, remote memory normal Head: normocephalic, atraumatic Eyes: EOM: EOMI ENMT: normal ENT inspection Neck: supple, trachea midline Lungs: Respiratory effort: no dyspnea Auscultation: no wheezing, no rhonchi, decreased breath sounds Cardiovascular: Apical Impulse: not displaced Heart Auscultation: RRR, no rubs, no gallops Peripheral Pulses: Pulses: full and equal, in all extremities except if noted Bruits: none appreciated Carotid Pulse: normal on the left, normal on the right Brachial Pulses: normal on the left, normal on the right Radial Pulse: normal on the left, normal on the right Femoral Pulse: normal on the left, normal on the right Posterior Tibialis Pulse: decreased on the left, decreased on the right Dorsalis Pedis Pulse: decreased on the left, decreased on the right Abdomen: Bowel Sounds: normal Inspection & Palpation: soft, non-distended, no tenderness, guarding & rebound Musculoskeletal: normal strength (5/5 throughout), normal tone Extremities: Upper Right: no cyanosis, no varicosities, no palpable cord, no edema Upper Left: no cyanosis, no varicosities, no edema, good thrill in the fistula Lower Right: no cyanosis, no varicosities, no edema Lower Left: no cyanosis, no varicosities, no edema Neurologic: Cranial Nerves: grossly intact Sensation: grossly intact Assessment and Plan ASSESSMENT and PLAN: ESRD Malfunctioning fistula Plan: Patient is admitted for thrombectomy of his fistula and possible transposition. I have discussed the risks options and benefits of the procedure with the patient. The patient understands the risks options and benefits and agrees to the procedure.
[~2017-12-09] VITALS: Ht 182.9 cm; Wt 136.4 kg
[~2017-12-09 11:05] MED LIST changes: -AMLO-114 PO; +AMLO10TA3 PO; -APR25 PO; -ATOR10TA82 PO; -BUPIVACAINE/EPINEPHRINE 0.5% MPF 1:200,000 30 ML VIAL ONE; +CEFAZOLIN 1000MG IV PUSH 7.5 ML IV SCH; +CEFAZOLIN IV 1,000 MG in DEXTROSE 5% 50ML 50 ML IV ONE; -CLON0.3T PO; -CYAN100020 PO; -FENTANYL CITRATE INJ 50 MCG/1 ML 2 ML VIAL ONE; -FIBER PO; -FURO80TA63 PO; -GELATIN SPONGE 12-7MM ONE; -HEPARIN SOD (PORCINE) 1000 UNIT/ML 10 ML VIAL ONE; -ISOS60TA25 PO; -LIDOCAINE HCL 1% 20 ML VIAL ONE; -LIDOCAINE HCL 2% 2 ML VIAL (20MG/ML) ONE; -MIDAZOLAM HCL 1 MG/ML 2ML VIAL ONE; -OXYC-57 PO; -PERCOCET HOME PACK PO ONE; +POTA-639 PO; -POTA20TA16 PO; -PROPOFOL IV EMULSION 10 MG/ML 20 ML VIAL IV ONE; -THROMBIN FOR SOLN 20000 UNIT KIT ONE; -[UNRECOGNIZED DRUG - REMARK] SCH
[2017-12-09 11:17] VITALS: BP 166/104; PULSE 67; TEMP 36.6; O2SAT 98; Ht 182.9 cm; Wt 136.4 kg
[2017-12-09 12:38] LABS: CREATININE 3.68 mg/dl (0.60-1.40); POTASSIUM 3.1 mmol/L (3.5-5.1)
--- NOTE | 2017-12-09 12:44 | History & Physical Bridge Note ---
H&P Re-Evaluation Bridge Note: I have examined the patient, reviewed the History & Physical and in the interval since the performance of the History & Physical I have noted the following changes of clinical significance: No changes noted
[2017-12-09] MEDS ORDERED: LIDOCAINE HCL 2% 2 ML VIAL (20MG/ML) ONE (13:52)
[2017-12-09] MEDS ORDERED: FENTANYL CITRATE INJ 50 MCG/1 ML 2 ML VIAL ONE (13:52)
[2017-12-09] MEDS ORDERED: PROPOFOL IV EMULSION 10 MG/ML 20 ML VIAL ONE (13:52)
[2017-12-09] MEDS ORDERED: LIDOCAINE 2% JELLY 5 ML TUBE ONE (14:20)
[2017-12-09] MEDS ORDERED: BUPIVACAINE/EPINEPHRINE 0.5% MPF 1:200,000 30 ML VIAL ONE (14:29)
[2017-12-09] MEDS ORDERED: THROMBIN FOR SOLN 20000 UNIT KIT ONE (14:29)
[2017-12-09] MEDS ORDERED: HEPARIN SOD (PORCINE) 1000 UNIT/ML 10 ML VIAL ONE ×2 (14:29→16:10)
[2017-12-09] MEDS ORDERED: LIDOCAINE HCL 1% 20 ML VIAL ONE (14:29)
[2017-12-09] MEDS ORDERED: GELATIN SPONGE SZ 100 ONE (14:30)
[2017-12-09] MEDS ORDERED: CEFAZOLIN SOD 1 GM VIAL ONE (14:55)
[2017-12-09] MEDS ORDERED: SUCCINYLCHOLINE 100MG/5ML SYR IV ONE (16:10)
[2017-12-09] MEDS ORDERED: ONDANSETRON INJ 2 MG/ML 2 ML VIAL ONE (16:10)
--- NOTE | 2017-12-09 16:30 | [facility] Post Operative Brief Note ---
Immediate Operative Summary Operative Date Dec 09, 2017. Pre-Operative Diagnosis Thrombosed left arm fistula Post-Operative Diagnosis Thrombosed left arm fistula Procedure(s) Performed Left antecubital cephalic vein fistula creation Surgeon Arash Glaze Supervisor Surgeon(s) Sabra Gusman MD Estimated Blood Loss 10cc Findings Consistent with Post-Op Diagnosis Specimens none Anesthesia Type General Complication(s) none Disposition Accompanied Pt To Recover: no Disposition: Recovery Room / PACU
[2017-12-09] MEDS ORDERED: OXYC-57 PO (16:39)
--- NOTE | 2017-12-09 16:41 | Discharge Instructions ---
Discharge Instructions Date of Service Dec 09, 2017. Visit Reason for Visit: Clotted Left Arm Arteriovenous Fistula Discharge Discharge Diagnosis / Problem: Thrombosed left arm fistula Discharge Goals Goal(s): Therapeutic intervention Activity Recommendations Activity Limitations: per Instructions/Follow-up section Anesthesia . Post Anesthesia Instructions: If you have had General Anesthesia or IV Sedation: * Do not drive today. * Resume driving when surgeon permits. * Do not make important decisions or sign legal documents today. * Call surgeon for: 1. Temperature elevations greater than 101 degrees F. 2. Uncontrollable pain. 3. Excessive bleeding. 4. Persistent nausea and vomiting. 5. Medication intolerance (nausea, vomiting or rash). * For nausea and vomiting use only clear liquids such as: tea, soda, bouillon until nausea subsides, then gradually increase diet as tolerated. * If you have any concerns or questions, call your surgeon's office. If physician is unavailable and it is an emergency, call 911 or go to the nearest emergency room. . Instructions / Follow-Up Instructions / Follow-Up Call [phone] to schedule a follow up appointment if one not already scheduled. ACTIVITY RECOMMENDATIONS: See Above SPECIAL CARE INSTRUCTIONS: Call your doctor if: * Temperature above 101 degrees * Pain not relieved by pain medicine ordered * There is increased drainage or redness from any incision * You have any unanswered questions or concerns. Diet Recommendations Recommended Home Diet: resume previous diet Procedures Procedures Performed: Left antecubital Cephalic Vein fistula creation Pending Studies Studies pending at discharge: no Medical Emergencies . Who to Call and When: Medical Emergencies: If at any time you feel your situation is an emergency, please call 911 immediately. . Non-Emergent Contact Non-Emergency issues call your: Surgeon . . "Provider Documentation" section prepared by Juan Antoine. .
[2017-12-09] MEDS ORDERED: OXYCODONE/ACETAMINOPHEN 5-325 TAB PO PRN (16:45)
[2017-12-09] MEDS ORDERED: PERCOCET HOME PACK PO ONE (17:15)
--- NOTE | 2017-12-09 17:18 | [facility] Operative Report ---
Operative Report Operative Date Dec 09, 2017. Pre-Operative Diagnosis thrombosed fistula, end stage renal disease Post-Operative Diagnosis same Procedure(s) Performed Left antecubital Cephalic Vein fistula creation Surgeon Dr. Juan Antoine Senior Ecologist Surgeon(s) Dr. Sade Gusman Estimated Blood Loss 10 ml Findings Fistula with thrill at conclusion of case Specimens N/A Anesthesia Type General Complication(s) none Disposition no Recovery Room / PACU Indications Mr. Ricks is a 57-year-old gentleman with ESRD who is dialysis dependent. He had a previous left Becki fistula which was deep and difficult to cannulate. This thrombosed in the last week. He had a tunneled dialysis catheter placed yesterday, but needed permanent access, therefore we created a new left AV fistula. Description of Procedure After induction of anesthesia, the patient's left arm was evaluated using ultrasound. The thrombosed portion of the forearm cephalic vein was identified. The cephalic vein of the arm was evaluated and thought to be of adequate caliber for an AV fistula. We then planned to perform a left AC fossa AV fistula. The patient's left arm was prepped and draped in a sterile fashion. An incision was made 2 fingerbreadths distal to the AC fossa. The cephalic and median antecubital veins were identified. Attention was turned to identifying the brachial artery, which was deep within the arm. We identified the brachial artery just proximal to the radial and ulnar artery bifurcation. We freed the veins superficially from their surrounding attachments and found that the configuration with the least stress was an anastomosis performed from the brachial artery to the median cubital vein. The distal cephalic vein was transected and oversewn. Three thousand units of heparin were given and the brachial artery was clamped using angled DeBakey clamps. The AV fistula was then created using a 6-0 Prolene. The lateral portion of the anastomosis was created using a parachute technique. The anastomosis was completed and was hemostatic. There was a palpable thrill within the fistula and the vein was patent. The subcutaneous tissues were reapproximated with 3-0 and 4-0 Vicryl with Dermabond applied on top. The patient tolerated the procedure well. Dr. Antoine was present for all critical portions of the case. I attest to the content of the Intraoperative Record and any orders documented therein. Any exceptions are noted below.
--- NOTE | 2017-12-09 17:27 | Anesthesiology Progress Note ---
Anesthesia Post Op Note Date & Time Dec 09, 2017 at 17:26 Vital Signs Pain Intensity: 0 Vital Signs Past 12 Hours Date Time Temp Pulse Resp B/P (MAP) Pulse Ox O2 Delivery O2 Flow Rate FiO2 12/09/17 17:20 36.4 68 16 153/84 95 Room Air 12/09/17 17:10 70 16 156/82 96 Room Air 12/09/17 17:00 67 16 159/82 99 Oxymask 3 12/09/17 16:53 36.5 65 16 151/88 99 Oxymask 5 12/09/17 11:17 36.6 67 16 166/104 (124) 98 Room Air Notes Mental Status: alert / awake / arousable, participated in evaluation Pt Amnestic to Procedure: Yes Nausea / Vomiting: adequately controlled Pain: adequately controlled Airway Patency, RR, SpO2: stable & adequate BP & HR: stable & adequate Hydration State: stable & adequate Anesthetic Complications: no major complications apparent
[2017-12-09 17:30] VITALS: BP 149/82; PULSE 69; TEMP 36.7; O2SAT 93
[2017-12-09 18:00] VITALS: BP 149/81; PULSE 78; O2SAT 97
[2017-12-09 18:31] VITALS: BP 159/84; PULSE 83; O2SAT 97
== END 2017-12-09 18:48 | disposition home or self-care (01) ==
LOC: C.ACU 11:05
PROVIDERS: ATTEND Surgery Vascular Surgery
DX: N18.6 End stage renal disease (principal); E11.9 Type 2 diabetes mellitus without complications; I50.32 Chronic diastolic (congestive) heart failure; E78.5 Hyperlipidemia, unspecified; I10 Essential (primary) hypertension; G47.33 Obstructive sleep apnea (adult) (pediatric); M19.90 Unspecified osteoarthritis, unspecified site; E66.9 Obesity, unspecified; Z79.82 Long term (current) use of aspirin; Z79.84 Long term (current) use of oral hypoglycemic drugs; Z82.49 Family history of ischemic heart disease and other diseases of the circulatory system; Z83.3 Family history of diabetes mellitus; Z87.891 Personal history of nicotine dependence; Z99.89 Dependence on other enabling machines and devices; Z99.2 Dependence on renal dialysis

== ENCOUNTER 2018-01-10 05:25 | Day surgery (SDC) | payer OTHER, BC ==
[~2018-01-10] VITALS: Ht 182.9 cm; Wt 137.0 kg
[~2018-01-10 05:25] MED LIST changes: -ATROPINE SULFATE 0.1 MG/ML 5ML SYR IV PRN; -CEFAZOLIN 1000MG IV PUSH 7.5 ML IV SCH; -CEFAZOLIN 3000MG IV PUSH 22.5 ML IV SCH; -CEFAZOLIN IV 1,000 MG in DEXTROSE 5% 50ML 50 ML IV ONE; -EpHEDrine SULFATE INJ 50 MG/ML AMP IV PRN; -FENTANYL CITRATE INJ 50 MCG/1 ML 2 ML VIAL IV PRN; -ONDANSETRON INJ 2 MG/ML 2 ML VIAL IV PRN; +OXYC-57 PO; -SODIUM CHLORIDE 0.9% 1000ML 1,000 ML IV SCH
[2018-01-10 05:49] VITALS: Ht 182.9 cm; Wt 137.0 kg
[2018-01-10 05:54] VITALS: BP 145/86; PULSE 69; TEMP 36.6; O2SAT 97
--- NOTE | 2018-01-10 05:54 | History and Physical ---
History & Physical Date of Service Jan 10, 2018. History & Physical Chief Complaint ESRD, left arm swelling History of Present Illness The patient is a 57 year old male with hx of htn, dmII, CKD, and worsening kidney function requiring dialysis. He had a permcath inserted to begin HD. He then had a left wrist av fistula creation. The permcath was removed. His left arm continues to be swollen. There was a suggestion of a subclavian vein stenosis on a previous fistulogram. Denies MUHAMMAD, fever, chills, chest pain, SOB, abd pain, N/V, rest pain, claudication, other complaints. Allergies Coded Allergies: No Known Allergies (Unverified , 10/12/14) Home Medications Scheduled Amlodipine (Norvasc), 10 MG PO DAILY Aspirin (Aspirin Ec), 81 MG PO DAILY Atorvastatin (Lipitor), 10 MG PO QAM Carvedilol (Coreg), 25 MG PO BID Cholecalciferol (Vitamin D3), 1 TAB PO DAILY Clonidine Hcl (Catapres), 0.3 MG PO DAILY Cyanocobalamin (Vitamin B12), 1,000 MCG PO DAILY Doxazosin Mesylate (Cardura), 1 MG PO DAILY Glimepiride (Glimepiride), 1 TAB PO BID Hydralazine Hcl (Apresoline), 25 MG PO TID Isosorbide Mononitrate Ext Rel (Imdur Ext Rel), 60 MG PO QAM Multivitamins/Minerals (Certavite/Antioxidants), 1 TAB PO DAILY Potassium Chloride (Klor-Con), 20 MG PO BID Triamterene/Hctz (Triamterene/Hctz 37.5-25MG), 1 TAB PO HS [kidney stuff], 1 CAP PO DAILY [peony immune], 1 CAP PEG DAILY Problem List Medical Problems: (1) Chest pain (2) Chronic diastolic CHF (congestive heart failure) (3) CKD (chronic kidney disease), stage IV (4) Diabetes mellitus, type II (5) DM2 (diabetes mellitus, type 2) (6) ESRD (end stage renal disease) (7) HLD (hyperlipidemia) (8) Hypertension (9) Sleep apnea Surgical Problems: (1) Status post carpal tunnel release Surgical / Medical History Hx Cardiac Surgery: No Hx Abdominal Surgery: No Hx Cancer Surgery: No Hx Thoracic Surgery: No Hx Orthopedic: Yes (Carpal tunnel release right ) Hx Urinary Tract Surgery: No Past Medical/Surgical History: Diabetes, High Cholesterol, Hypertension, Kidney Disease Family History Amyloidosis FATHER Diabetes mellitus MOTHER FHx: heart disease Hypertension MOTHER Stroke MOTHER Social History Smoking Status: Former Smoker Hx Tobacco Use In Past Year?: Yes (QUIT SMOKING ) Hx Alcohol Use - Type & Amnt: Yes Hx Substance Use -Type & Amnt: No Review of Systems Constitutional: + malaise, No chills, No fever Skin: No change in color Eyes: No visual changes ENMT: No sore throat Respiratory: No cough, No YOUSIF, No hemoptysis, No short of breath Cardiovascular: No chest pain, No palpitations, No syncope Gastrointestinal: No abdominal pain, No nausea, No vomiting Neurologic: No dizziness, No headache, No numbness, No tingling Physical Exam Constitutional: General Apperance: well-nourished, well-developed, obese Level of Distress: NAD, chronically ill (mildly) Ambulation: ambulating normally Psychiatric: Mental Status: active & alert, normal mood, normal affect Orientation: oriented except where noted, to time, to place, to person Memory: recent memory normal, remote memory normal Head: normocephalic, atraumatic Eyes: EOM: EOMI ENMT: normal ENT inspection Neck: supple, trachea midline Lungs: Respiratory effort: no dyspnea Auscultation: no wheezing, no rhonchi, decreased breath sounds Cardiovascular: Apical Impulse: not displaced Heart Auscultation: RRR, no rubs, no gallops Peripheral Pulses: Pulses: full and equal, in all extremities except if noted Bruits: none appreciated Carotid Pulse: normal on the left, normal on the right Brachial Pulses: normal on the left, normal on the right Radial Pulse: normal on the left, normal on the right Femoral Pulse: normal on the left, normal on the right Posterior Tibialis Pulse: decreased on the left, decreased on the right Dorsalis Pedis Pulse: decreased on the left, decreased on the right Abdomen: Bowel Sounds: normal Inspection & Palpation: soft, non-distended, no tenderness, guarding & rebound Musculoskeletal: normal strength (5/5 throughout), normal tone Extremities: Upper Right: no cyanosis, no varicosities, no palpable cord, no edema Upper Left: no cyanosis, no varicosities, moderate edema, good thrill in the fistula Lower Right: no cyanosis, no varicosities, no edema Lower Left: no cyanosis, no varicosities, no edema Neurologic: Cranial Nerves: grossly intact Sensation: grossly intact Assessment and Plan ASSESSMENT and PLAN: ESRD Left arm swelling Plan: Patient is admitted for a fistulogram with possible intervention. I have discussed the risks options and benefits of the procedure with the patient. The patient understands the risks options and benefits and agrees to the procedure.
[2018-01-10] MEDS ORDERED: CEFAZOLIN 1000MG IV PUSH 7.5 ML IV SCH (06:00)
[2018-01-10] MEDS ORDERED: CEFAZOLIN SOD 2000MG/15 ML IV PUSH ONE (06:27)
[2018-01-10] MEDS ORDERED: MIDAZOLAM HCL 1 MG/ML 2ML VIAL ONE (07:44)
[2018-01-10] MEDS ORDERED: FENTANYL CITRATE INJ 50 MCG/1 ML 2 ML VIAL ONE (07:44)
--- NOTE | 2018-01-10 08:00 | Pre Sedation Assessment ---
Pre Sedation Assessment General Date of Sedation: Jan 10, 2018. Vital Signs Past 12 Hours Date Time Temp Pulse Resp B/P (MAP) Pulse Ox O2 Delivery O2 Flow Rate FiO2 01/10/18 05:54 36.6 69 20 145/86 (105) 97 Room Air Review Cardiovascular: regular rate, rhythm Lungs: lungs clear Pre-Sedation Airway Assessment Smoking Status: Former Smoker Hx of Sleep Apnea: Yes Short Thick Neck: No Thyro-mental Distance: > 3 Finger Breadths Oral Cavity: WNL Mallampati Classification: Class II ASA Classification: Class III NPO Status Date of Last Intake of Fluids: Jan 09, 2018 Time of Last Intake of Fluids: 2029 Date of Last Intake of Solids: Jan 09, 2018 Time of Last Intake of Solids: 1800 Procedure Planning Contraindications for Sedation: None Current Medications Reviewed: Yes Notes The planned sedation has been discussed with the patient. Informed Consent was obtained. I have identified the patient, determined the appropriateness of sedation and have assessed the patient immediately prior to the procedure. All medicine(s) and interventions are by my order.
[2018-01-10] MEDS ORDERED: MIDAZOLAM HCL 1 MG/ML 2ML VIAL IV ONE ×2 (08:28→09:00)
[2018-01-10] MEDS ORDERED: FENTANYL CITRATE INJ 50 MCG/1 ML 2 ML VIAL IV ONE ×2 (08:28→09:00)
[2018-01-10] MEDS ORDERED: LIDOCAINE HCL 1% 20 ML VIAL INJ ONE (08:30)
[2018-01-10] MEDS ORDERED: D5W AND 1/4NSS 1,000 ML IV SCH (08:30)
[2018-01-10] MEDS ORDERED: OPTIRAY 300 IV ONE (09:07)
--- NOTE | 2018-01-10 09:08 | [facility] Post Operative Brief Note ---
Immediate Operative Summary Operative Date Jan 10, 2018. Pre-Operative Diagnosis Malfunctioning Fistula Post-Operative Diagnosis Malfunctioning Fistula, subclavian vein stenosis Procedure(s) Performed Fistulogram, Percutaneous Transluminal Angioplasty Central Vein, Moderate Sedation from [phone] Antoine Pediatric Critical Care Nurse Surgeon(s) Dr. Casandra Ambrocio Estimated Blood Loss 5 Findings Consistent with Post-Op Diagnosis Specimens None Drains None Anesthesia Type None Complication(s) none Disposition Accompanied Pt To Recover: no Disposition:
--- NOTE | 2018-01-10 09:10 | Discharge Instructions ---
Discharge Instructions Date of Service Jan 10, 2018. 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 Post Anesthesia Instructions: If you have had General Anesthesia or IV Sedation: * Do not drive today. * Resume driving when surgeon permits. * Do not make important decisions or sign legal documents today. * Call surgeon for: 1. Temperature elevations greater than 101 degrees F. 2. Uncontrollable pain. 3. Excessive bleeding. 4. Persistent nausea and vomiting. 5. Medication intolerance (nausea, vomiting or rash). * For nausea and vomiting use only clear liquids such as: tea, soda, bouillon until nausea subsides, then gradually increase diet as tolerated. * If you have any concerns or questions, call your surgeon's office. If physician is unavailable and it is an emergency, call 911 or go to the nearest emergency room. . Instructions / Follow-Up Instructions / Follow-Up Call [phone] to schedule a follow up appointment if one not already scheduled. SPECIAL CARE INSTRUCTIONS: Medications: * Continue to take your medications as directed. If you have been given a prescription for Plavix, please fill it immediately and take as directed. Incision Care: * Your puncture site may have some bruising and minor swelling for about one week. * You will have a small dressing covering your puncture site. You may remove the dressing after 24 hours and shower. You may let the warm soapy water run over it, but be sure to dry the puncture site well and keep it dry. * DO NOT IMMERSE THE INCISION IN A TUB/POOL/etc. UNTIL HEALED. * Puncture sites should be kept covered with a band-aid until it begins to heal. Restrictions: * Depending on whether you leg or arm was punctured to access the arteries, you will be required to lay flat, hold your arm still, or both, for about 4 hours after the procedure to prevent bleeding. * Limit your activity for the first 48 hours. You may walk and go up and down steps. Avoid excessive bending or movement at the puncture site. Possible Complications: * Excessive Swelling - after blood flow is improved you may notice increased swelling in the lower legs. This is a normal response. This usually depends on the amount of blockages in the leg, how long they have been there prior to your procedure and how much blood flow was restored. Elevating your legs will help to improve this. Please notify our office ([phone] ) if the swelling does not go away after lying in bed overnight. * Infection/Drainage/Bleeding - Drainage or bleeding from the puncture site should be minimal. If you have excessive bleeding or drainage, call our office ([phone]) right away. * Pain - You may experience some mild pain or soreness at your puncture site. If your pain does not improve, please contact our office ([phone]). Call your doctor and seek emergent treatment if you develop: * Temperature above 101 degrees * Any fever or chills * Any redness or purulent drainage from the puncture site * Any new dusky/blue colored toes or feet with coolness or sharp or aching pain. SKIN IRRITATION: * You may experience some redness and/or swelling in the area where radiation was administered. If any skin irritation occurs, please contact your family physician. FOLLOW UP VISIT: Keep any scheduled doctor appointments. Diet Recommendations Recommended Home Diet: resume previous diet Procedures Procedures Performed: Fistulogram, Percutaneous Transluminal Angioplasty Central Vein, Moderate Sedation Pending Studies Studies pending at discharge: no Medical Emergencies . Who to Call and When: Medical Emergencies: If at any time you feel your situation is an emergency, please call 911 immediately. . Non-Emergent Contact Non-Emergency issues call your: Surgeon . . "Provider Documentation" section prepared by Juan Antoine. .
--- NOTE | 2018-01-10 09:22 | [facility] Operative Report ---
Operative Report Operative Date Jan 10, 2018. Pre-Operative Diagnosis Malfunctioning Fistula Post-Operative Diagnosis Malfunctioning Fistula, subclavian vein stenosis Procedure(s) Performed Fistulogram, Percutaneous Transluminal Angioplasty Central Vein, Moderate Sedation Surgeon Dr. Antoine Leg Breaker Surgeon(s) Dr. Casandra Ambrocio Estimated Blood Loss 5 Specimens None Drains None Anesthesia Type None Complication(s) none Disposition no Indications Mr. Ricks is a 57 year old male with ESRD. In November he had a revision of his left upper extremity AV fistula by Dr. Antoine. He continued to have left upper extremity swelling following this procedure and there was concern for a central vein stenosis. The risks, benefits and alternatives were discussed with him and he agreed to proceed with fistulogram and intervention. Description of Procedure The patient was brought to the angio suite and placed in the supine position with his left arm out. His antecubital fossa was prepped and draped in the usual sterile fashion. Preoperative antibiotics were administered. A palpable thrill could be felt over his fistula. Local anesthesia was administered. A percutaneous access site was selected and the fistula was accessed with a micropuncture kit. Fistulogram was then obtained, which showed central venous stenosis at the left subclavian vein. A 6-[place] sheath was then placed. A 0.035 angled Glidewire was used to easily cross the area of stenosis. An [place] 10 mm x 40 mm balloon was advanced over the wire and inflated in the area of the stenosis. Fistulogram was repeated which showed continued stenosis. The sheath was upsized to a 7 [place] sheath over the wire. An [place] GOLD 12mm x40mm balloon was advanced over the wire and inflated in the area of the stenosis. This was repeated with a waist still seen in the area of stenosis. Repeat fistulogram was completed which showed continued stenosis. An [place] GOLD 16mm x40mm balloon was then inserted and advanced to the area of stenosis in the subclavian vein. This was inflated to 16 mmHg. Completion fistulogram showed improvement in the stenosis. The sheath was removed and pressure was held with hemostasis achieved. The patient tolerated the procedure well and was transferred to the PACU in good condition with a palpable thrill over his left AV fistula and no complications. Dr. Antoine was present for the entire procedure. I attest to the content of the Intraoperative Record and any orders documented therein. Any exceptions are noted below.
[2018-01-10 09:36] VITALS: BP 126/66; PULSE 66; TEMP 36.5; O2SAT 95
--- NOTE | 2018-01-10 09:48 | Post Sedation Assessment ---
Post Sedation Assessment General Date of Sedation Jan 10, 2018. Vital Signs: Vital Signs Past 12 Hours Date Time Temp Pulse Resp B/P (MAP) Pulse Ox O2 Delivery O2 Flow Rate FiO2 01/10/18 05:54 36.6 69 20 145/86 (105) 97 Room Air Post Procedure Recovery Score Activity: (2) Moves 4 extremities * Respiration: (2) Deep breath/cough Circulation: (2) +/-20% PreAnes Value Consciousness: (2) Fully Awake Oxygen Saturation: (2) > 92% On Room Air Post Anesthesia Score: 10 Discharge Sedation Level of Care: Fast Track Phase II Post Sedation Plan On clinical assessment, the patient appears to have tolerated the sedation without complications. Patient is recovering as anticipated. Patient will continue to be monitored by nursing and may be discharged when sedation discharge criteria are met per below protocol. Upon Completions of procedure and additional 15 minutes continue every 5 minute vital signs and the P.A.R. score; then discharge to a Phase I or Fast Track to Phase II per the following guidelines: * Discharge Patient to appropriate Phase II area if PAR is 8 or greater or return to pre- procedure baseline. The post - procedure orders will be as directed. * If PAR score is less than 8 or not return to pre-procedure baseline then patient will follow Phase I monitoring till PAR is reached for Phase II. The Phase I may be done in procedure room or may call to secure a Phase I area. * If naloxone or flumazenil are used for reversal, hold in Phase I for an additional 60 -120 minutes before discharge to Phase II. Please call the Sedation Physician to re-evaluate and complete post-note for discharge to Phase II area. Do NOT discharge from procedure sedation or Phase 1 until post- sedation evaluation note is complete by procedure /sedation MD Sedation Discharge Instructions to be given to the patient at discharge to home.
[2018-01-10 10:06] VITALS: BP 144/78; PULSE 67; TEMP 36.6; O2SAT 97
== END 2018-01-10 10:15 | disposition home or self-care (01) ==
LOC: C.ACU 05:25
PROVIDERS: ATTEND Surgery Vascular Surgery
DX: T82.858A Stenosis of other vascular prosthetic devices, implants and grafts, initial encounter (principal); N18.6 End stage renal disease; I13.2 Hypertensive heart and chronic kidney disease with heart failure and with stage 5 chronic kidney disease, or end stage renal disease; E11.9 Type 2 diabetes mellitus without complications; Z79.82 Long term (current) use of aspirin; Z79.899 Other long term (current) drug therapy; I50.32 Chronic diastolic (congestive) heart failure; E78.5 Hyperlipidemia, unspecified; Z87.891 Personal history of nicotine dependence; Y84.8 Other medical procedures as the cause of abnormal reaction of the patient, or of later complication, without mention of misadventure at the time of the procedure